=== PATIENT | female | born 1945 | race Caucasian/White ===

== ENCOUNTER → 2016-08-20 | Day surgery (SDC) | payer OTHER ==
[2016-08-14 14:27] VITALS: Ht 162.6 cm; Wt 81.4 kg
[~2016-08-20] VITALS: Ht 162.6 cm; Wt 81.4 kg
[~2016-08-20] MED LIST: 500ML BSS 0.3ML EPI 1:1000PF IRRIG ONE; ACETAMINOPHEN 325 MG TAB PO PRN; AMVISC PLUS 0.8ML SYRINGE INT OCU ONE; ASPEC81 PO; ASPI81TA28 PO; ATROPINE SULFATE 0.1 MG/ML 5ML SYR IV PRN; BRIMONIDINE TART 0.2% OP SOLN PER DROP CHARGE ONE; BSS FLUSH ONE; CALC600T9 PO; CMD5 PO; ENDOCOAT 0.85ML SYRINGE INT OCU ONE; ENOX80IN SQ; EpHEDrine SULFATE INJ 50 MG/ML AMP IV PRN; EpINEphrine INJ 1MG/ML AMP 1 MG/ML AMP ONE; GLC500 PO; KETO0.5S33 OPR; LACTATED RINGER'S 1000ML 500 ML IV SCH; LIDOCAINE 4% OP SOLN DROP CHARGE ONE; LIDOCAINE 4% OP SOLN DROP CHARGE OPL SCH; LIDOCAINE HCL 1% MPF 2 ML VIAL ONE; LPR25 PO; METF500T PO; MIDAZOLAM HCL 1 MG/ML 2ML VIAL ONE; MOXIFLOXACIN OPH SOLN PER DROP CHARGE ONE; MULT-506 PO; MULT60CA PO; POVIDONE-IODINE OP SOLN 30 ML BTL ONE; PRED1SUS3 OPR; PROPARACAINE 0.5% OP SOLN PER DROP CHARGE OPL SCH; SIMV20TA2 PO; TOBRAMYCIN/DEXAMETHASONE OPH OINT PER APPLN CHARGE ONE
[2016-08-20] MEDS: PHENYLEPHRINE HCL 2.5% OP SOLN PER DROP CHARGE OPL SCH ×2 (06:35→06:40)
[2016-08-20] MEDS: TROPICAMIDE 1% OP SOLN PER DROP CHARGE OPL SCH ×2 (06:36→06:41)
[2016-08-20] MEDS: CYCLOPENTOLATE HCL 1% OP SOLN PER DROP CHARGE OPL SCH ×2 (06:37→06:42)
[2016-08-20] MEDS: KETOROLAC 0.5% OP SOLN PER DROP CHARGE OPL SCH ×2 (06:38→06:43)
[2016-08-20] MEDS: MOXIFLOXACIN OPH SOLN PER DROP CHARGE OPL SCH ×2 (06:39→06:49)
--- NOTE | 2016-08-20 06:57 | History & Physical Bridge - [place] ---
H&P Re-Evaluation Bridge Note: I have examined the patient, reviewed the History & Physical and in the interval since the performance of the History & Physical I have noted the following changes of clinical significance: No changes noted
[2016-08-20 07:24] VITALS: TEMP 36.4
--- NOTE | 2016-08-20 07:25 | [facility] Post Operative Brief Note ---
Immediate Operative Summary Operative Date Aug 20, 2016. Pre-Operative Diagnosis Cataract Left Eye Post-Operative Diagnosis Same Procedure(s) Performed Left Cataract Phacoemulsification With Intraocular Lens Implant Surgeon Dr. Carrion Early Childhood Specialist Surgeon(s) None Estimated Blood Loss None Findings cataract left eye Specimens None Complication(s) None Disposition Recovery Room / PACU
--- NOTE | 2016-08-20 07:25 | Discharge Instructions-SurgCtr ---
Discharge Instructions Visit Reason for Visit: Left Cataract Discharge Discharge Diagnosis / Problem: cataract left eye Discharge Goals Goal(s): Improve function Medications Stopped Medications Name(s): metformin stopped saturday Activity Recommendations Activity Limitations: per Instructions/Follow-up section Lifting Limitations: no more than 5 pounds Anesthesia . Post Anesthesia Instructions: If you have had General Anesthesia or IV Sedation: * Do not drive today. * Resume driving when surgeon permits. * Do not make important decisions or sign legal documents today. * Call surgeon for: 1. Temperature elevations greater than 101 degrees F. 2. Uncontrollable pain. 3. Excessive bleeding. 4. Persistent nausea and vomiting. 5. Medication intolerance (nausea, vomiting or rash). * For nausea and vomiting use only clear liquids such as: tea, soda, bouillon until nausea subsides, then gradually increase diet as tolerated. * If you have any concerns or questions, call your surgeon's office. If physician is unavailable and it is an emergency, call 911 or go to the nearest emergency room. . Instructions / Follow-Up Instructions / Follow-Up ACTIVITY RECOMMENDATIONS: * Light activities * You may walk outside, read, watch television. * Mild irritation and blurred vision are common for the first few days, redness around the white part of the eye is common. MEDICATIONS: Resume previous medications unless instructed otherwise by your surgeon. Eye drops (today and tomorrow): Cipro - one drop in operative eye every 2 hours while awake Prednisolone 1% - one drop in operative eye every 2 hours while awake Ketorolac - one drop in operative eye every 2 hours while awake SPECIAL CARE INSTRUCTIONS: * If any problems or concerns, please call Dr. Carrion's office at . * Keep plastic shield taped over eye to sleep at night. * Keep plastic shield taped over eye except to administer eye drops. * Keep plastic shield on until office visit the following day. FOLLOW UP VISIT: Follow-up with Dr. Carrion in the [place] office as scheduled. If not already scheduled, please call the office at . Diet Recommendations Home Diet: no limitations Procedures Procedures Performed: Left Cataract Phacoemulsification With Intraocular Lens Implant Pending Studies Studies pending at discharge: no Medical Emergencies . Who to Call and When: Medical Emergencies: If at any time you feel your situation is an emergency, please call 911 immediately. . Non-Emergent Contact Non-Emergency issues call your: Senior Asset Manager . . "Provider Documentation" section prepared by Arden Carrion.
[2016-08-20 07:51] VITALS: BP 106/65; PULSE 64; O2SAT 95
--- NOTE | 2016-08-20 07:54 | Anesthesia Progress Nt - [facility] ---
Anesthesia Post Op Note Date & Time Aug 20, 2016 at 07:52 Vital Signs Pain Intensity: 0 Vital Signs Past 12 Hours Date Time Temp Pulse Resp B/P Pulse Ox O2 Delivery O2 Flow Rate FiO2 08/20/16 07:51 64 16 106/65 95 Room Air 08/20/16 07:24 36.4 63 16 120/76 95 Room Air 08/20/16 06:29 36.8 70 16 144/77 97 Room Air Notes Mental Status: alert / awake / arousable, participated in evaluation Pt Amnestic to Procedure: Yes Nausea / Vomiting: adequately controlled Pain: adequately controlled Airway Patency, RR, SpO2: stable & adequate BP & HR: stable & adequate Hydration State: stable & adequate Anesthetic Complications: no major complications apparent
--- NOTE | 2016-08-20 08:42 | OPERATIVE REPORT ---
DATE OF OPERATION: 08/20/2016 PREOPERATIVE DIAGNOSIS: Cataract, left eye. POSTOPERATIVE DIAGNOSIS: Cataract, left eye. PROCEDURE: Phacoemulsification cataract extraction with intraocular lens placement, left eye. SURGEON: Dr. Carrion. COMPLICATIONS: None. ESTIMATED BLOOD LOSS: None. ANESTHESIA: Topical with sedation. OPERATION AND FINDINGS: After informed consent was obtained in the holding area the patient was wheeled back to the Operating Room where cardiac monitoring leads and oxygen by nasal cannula was administered by Anesthesia. Gentle IV sedation was given, and the patient's left eye was prepped and draped in usual sterile fashion. A wire lid speculum was placed into the left eye and the operating microscope was swung into position. Using 0.12 forceps and a Supersharp blade a paracentesis port was made 3 o'clock hours away from the 3 o'clock position of patient's left eye. 1% non-preserved Lidocaine was then injected into the anterior chamber for anesthesia. A 2.2 mm keratotome blade was then used to make a shelved clear corneal incision at the 3 o'clock position of the patient's left eye. Amvisc was injected into the anterior chamber and a cystotome and Utrata forceps were used to perform a curvilinear capsulorrhexis. BSS on a hydrodissection cannula was used to hydrodissect the lens nucleus away from the capsular bag. The phacoemulsification handpiece was then used in a stop and chop fashion to remove the lens nucleus. The irrigation and aspiration handpiece was then used to remove the residual cortical material. Amvisc was injected into the capsular bag and anterior chamber and a Bausch \T\ Lomb MX60, 21.0 Diopter intraocular lens was injected into the capsular bag. Irrigation and aspiration handpiece was used to remove the residual viscoelastic material. The wounds were hydrated and noted to be watertight. The wire lid speculum was removed from the eye. Vigamox, Brimonidine, and TobraDex ointment were placed on the eye and it was shielded. It should be noted that EndoCoat was used during the case to protect the cornea endothelium. DISPOSITION: The patient tolerated the procedure well and was wheeled to the post anesthesia care unit in stable condition. I attest to the content of the Intraoperative Record and any orders documented therein. Any exceptions are noted below. I attest to the content of the Intraoperative Record and any orders documented therein. Any exceptio ns are noted below.
== END | disposition home or self-care (01) ==
LOC: X.SURG 06:19
PROVIDERS: ATTEND Ophthalmology
DX: H25.12 Age-related nuclear cataract, left eye (principal); E78.00 Pure hypercholesterolemia, unspecified

== ENCOUNTER 2016-09-06 11:25 | Inpatient (IN) | payer OTHER ==
[~2016-09-06] VITALS: Ht 162.6 cm; Wt 81.3 kg
[2016-09-06] VITALS (8 sets, daily range): BP systolic 96–126; BP diastolic 56–80; PULSE 71–92; TEMP 36.8–37.3; O2SAT 94–96; Ht 162.6 cm; Wt 81.3 kg
[~2016-09-06 11:25] MED LIST changes: -500ML BSS 0.3ML EPI 1:1000PF IRRIG ONE; -ACETAMINOPHEN 325 MG TAB PO PRN; -AMVISC PLUS 0.8ML SYRINGE INT OCU ONE; -ASPI81TA28 PO; -ATROPINE SULFATE 0.1 MG/ML 5ML SYR IV PRN; -BRIMONIDINE TART 0.2% OP SOLN PER DROP CHARGE ONE; -BSS FLUSH ONE; -CMD5 PO; -ENDOCOAT 0.85ML SYRINGE INT OCU ONE; -ENOX80IN SQ; -EpHEDrine SULFATE INJ 50 MG/ML AMP IV PRN; -EpINEphrine INJ 1MG/ML AMP 1 MG/ML AMP ONE; -LACTATED RINGER'S 1000ML 500 ML IV SCH; -LIDOCAINE 4% OP SOLN DROP CHARGE ONE; -LIDOCAINE 4% OP SOLN DROP CHARGE OPL SCH; -LIDOCAINE HCL 1% MPF 2 ML VIAL ONE; -LPR25 PO; -METF500T PO; -MIDAZOLAM HCL 1 MG/ML 2ML VIAL ONE; -MOXIFLOXACIN OPH SOLN PER DROP CHARGE ONE; -POVIDONE-IODINE OP SOLN 30 ML BTL ONE; -PROPARACAINE 0.5% OP SOLN PER DROP CHARGE OPL SCH; -TOBRAMYCIN/DEXAMETHASONE OPH OINT PER APPLN CHARGE ONE
[2016-09-06 11:55] LABS: BASO % 0.4 %; BASO ABS # 0.02 K/uL (0-0.2); COMPLETE YES; HEMATOCRIT 44.3 % (37-47); IG% 0.2 %; LYMPH % 38.4 %; LYMPH ABS # 1.91 K/uL (1.2-3.4); MEAN CELL VOLUME 91.5 fL (80-100); MEAN CORPUSCULAR HEMOGLOBIN 32.6 pg (25-34); MEAN CORPUSCULAR HGB CONC 35.7 g/dl (32-36); MEAN PLATELET VOLUME 9.8 fL (7.4-10.4); MONO % 8.2 %; NEUT % 51.8 %; PLATELET COUNT 214 K/uL (130-400); RED BLOOD COUNT 4.84 M/uL (4.2-5.4); WHITE BLOOD COUNT 4.97 K/uL (4.8-10.8)
[2016-09-06 12:07] LABS: PROTHROMBIN TIME (PATIENT) 10.4 SECONDS (9.0-12.0)
[2016-09-06] MEDS ORDERED: DILTIAZEM BOLUS / DRIP IV STA (12:10)
[2016-09-06] MEDS ORDERED: DILTIAZEM HCL 5 MG/ML 5 ML VIAL IV STA ×2 (12:10)
--- NOTE | 2016-09-06 12:13 | EMERGENCY ROOM VISIT NOTE ---
History Report prepared by Nadir: Nuzhat Barr Under the Supervision of: Dr. Sergo Renee M.D. First contact with patient: 11:34 Chief Complaint: IRREGULAR HEARTBEAT Stated Complaint: A-FIB History of Present Illness The patient is a 71 year old female who presents to the Emergency Room with complaints of a persistent irregular heart rate and rhythm that began yesterday. The patient notes that today she went to see her PCP for a cough, congestion, and chills. She was found to be in atrial fibrillation with RVR in the 150s. The patient states that two days ago she felt a jiggling feeling in her chest, but denies any chest pain, shortness of breath, or lightheadedness. She notes a history of Type 2 diabetes, but denies any cardiac history. The patient states that she saw a roll examiner in 2012 for palpitations, but denies any other issues. She denies taking anything for her recent cough cold and congestion. The patient states that her cold began on Saturday, but states that it has been worsening. She states that on Saturday she noticed the symptoms in her heart. Source of History: patient Onset: yesterday Position: other (global) Quality: other (irregular heart rate and rhythm) Timing: other (persistent) Associated Symptoms: + chills, + cough, No SOB, No chest pain Note: Associated Symptoms: jiggling feeling in chest, cold, congestion Review of Systems See HPI for pertinent positives & negatives. A total of 10 systems reviewed and were otherwise negative. Past Medical & Surgical Medical Problems: (1) Hyperlipidemia (2) Rapid atrial fibrillation (3) Secundum ASD (4) Type 2 diabetes mellitus Surgical Problems: (1) History of cataract surgery (2) S/P section (3) S/p nipple surgery Family History No pertinent family history stated. Social History Smoking Status: Never Smoker Marital Status: Housing Status: lives with significant other Occupation Status: retired Current/Historical Medications Scheduled Aspirin (Aspirin Ec), 81 MG PO HS Calcium Carbonate-Vitamin D (Calcium + D), 1 TAB PO QAM Ketorolac Tromethamine (Ophth) (Acular Oph), 1 DROP OPR QID Metformin Hcl (Glucophage), 500 MG PO BID Multiple Vitamins W/ Minerals (Preservision Areds 2), 1 TAB PO BID Multivitamin (Multivitamin), 1 TAB PO QAM Prednisolone Acetate (Ophth) (Pred Forte 1% Oph), 1 DROPS OPR DAILY Simvastatin (Zocor), 20 MG PO QPM Allergies Coded Allergies: Amoxicillin (Verified Allergy, Severe, THROAT SWELLS AND TONGUE FEELS ON FIRE, 09/06/16) Cephalosporins (Verified Allergy, Severe, THROAT SWELLS AND TONGUE FEELS ON FIRE, 09/06/16) Hydrocodone (Verified Allergy, Unknown, RASH, 09/06/16) Physical Exam Vital Signs Date Time Temp Pulse Resp B/P Pulse Ox O2 Delivery O2 Flow Rate FiO2 09/06/16 11:59 156 09/06/16 11:43 Room Air 09/06/16 11:41 146 21 151/91 95 Room Air 09/06/16 11:39 Room Air 09/06/16 11:29 36.6 76 20 127/67 97 Room Air Physical Exam GENERAL: Patient is a healthy-appearing well-nourished HEAD: Normocephalic atraumatic EYES: Ocular movements intact pupils equal and react to light OROPHARYNX mucous membranes are moist no exudates present no erythema or edema present NECK: Supple no nuchal rigidity CHEST: Good equal expansion LUNGS: Clear and equal to auscultation CARDIAC: Normal S1 and S2 ABDOMEN: Soft nontender no guarding BACK: No CVA tenderness EXTREMITIES: No pain upon palpation normal muscle strength in all groups no clubbing cyanosis or edema NEURO: Patient is following commands is answering questions appropriately. Alert and oriented x3 Cranial Nerves 2-12 grossly intact Medical Decision & Procedures ER Provider Diagnostic Interpretation: X-ray results as stated below per interpretation by me and the radiologist: SINGLE VIEW CHEST CLINICAL HISTORY: Atypical chest pain. FINDINGS: An AP, portable, upright chest radiograph is compared to study dated 01/15/2011. The examination is degraded by portable technique and patient rotation. The cardiomediastinal silhouette is unremarkable. There is mild atherosclerotic calcification of the thoracic aorta. Chronic residual thickening is similar to previous. The lungs and pleural spaces are clear. No pneumothorax is seen. The skeletal structures are osteopenic. The bony thorax is grossly intact. IMPRESSION: No active disease in the chest. Electronically signed by: Arthur Palafox M.D. 09/06/2016 12:18 PM Dictated Date/Time: 09/06/2016 12:18 PMSINGLE VIEW CHEST CLINICAL HISTORY: Atypical chest pain. FINDINGS: An AP, portable, upright chest radiograph is compared to study dated 01/15/2011. The examination is degraded by portable technique and patient rotation. The cardiomediastinal silhouette is unremarkable. There is mild atherosclerotic calcification of the thoracic aorta. Chronic residual thickening is similar to previous. The lungs and pleural spaces are clear. No pneumothorax is seen. The skeletal structures are osteopenic. The bony thorax is grossly intact. IMPRESSION: No active disease in the chest. Electronically signed by: Arthur Palafox M.D. 09/06/2016 12:18 PM Dictated Date/Time: 09/06/2016 12:18 PM Laboratory Results 09/06/16 11:40 Red Blood Count 4.84, Mean Corpuscular Volume 91.5, Mean Corpuscular Hemoglobin 32.6, Mean Corpuscular Hemoglobin Concent 35.7, Mean Platelet Volume 9.8, Neutrophils (%) (Auto) 51.8, Lymphocytes (%) (Auto) 38.4, Monocytes (%) (Auto) 8.2, Eosinophils (%) (Auto) 1.0, Basophils (%) (Auto) 0.4, Neutrophils # (Auto) 2.57, Lymphocytes # (Auto) 1.91, Monocytes # (Auto) 0.41, Eosinophils # (Auto) 0.05, Basophils # (Auto) 0.02 09/06/16 11:40 Test 09/06/16 11:40 White Blood Count 4.97 K/uL (4.8-10.8) Red Blood Count 4.84 M/uL (4.2-5.4) Hemoglobin 15.8 g/dL (12.0-16.0) Hematocrit 44.3 % (37-47) Mean Corpuscular Volume 91.5 fL (80-100) Mean Corpuscular Hemoglobin 32.6 pg (25-34) Mean Corpuscular Hemoglobin Concent 35.7 g/dl (32-36) Platelet Count 214 K/uL (130-400) Mean Platelet Volume 9.8 fL (7.4-10.4) Neutrophils (%) (Auto) 51.8 % Lymphocytes (%) (Auto) 38.4 % Monocytes (%) (Auto) 8.2 % Eosinophils (%) (Auto) 1.0 % Basophils (%) (Auto) 0.4 % Neutrophils # (Auto) 2.57 K/uL (1.4-6.5) Lymphocytes # (Auto) 1.91 K/uL (1.2-3.4) Monocytes # (Auto) 0.41 K/uL (0.11-0.59) Eosinophils # (Auto) 0.05 K/uL (0-0.5) Basophils # (Auto) 0.02 K/uL (0-0.2) RDW Standard Deviation 40.3 fL (36.4-46.3) RDW Coefficient of Variation 11.9 % (11.5-14.5) Immature Granulocyte % (Auto) 0.2 % Immature Granulocyte # (Auto) 0.01 K/uL (0.00-0.02) Prothrombin Time 10.4 SECONDS (9.0-12.0) Prothromb Time International Ratio 1.0 (0.9-1.1) Activated Partial Thromboplast Time 27.3 SECONDS (21.0-31.0) Partial Thromboplastin Ratio 1.1 Anion Gap 12.0 mmol/L (3-11) Est Creatinine Clear Calc Drug Dose 43.0 ml/min Estimated GFR () 51.9 Estimated GFR (Non- 44.8 BUN/Creatinine Ratio 17.8 (10-20) Calcium Level 9.4 mg/dl (8.5-10.1) Total Bilirubin 0.4 mg/dl (0.2-1) Direct Bilirubin 0.1 mg/dl (0-0.2) Aspartate Amino Transf (AST/SGOT) 20 U/L (15-37) Alanine Aminotransferase (ALT/SGPT) 19 U/L (12-78) Alkaline Phosphatase 87 U/L (45-117) Total Creatine Kinase 115 U/L (26-192) Creatine Kinase MB 1.2 ng/ml (0.5-3.6) Creatine Kinase MB Ratio 1.0 (0-3.0) Troponin I < 0.015 ng/ml (0-0.045) Total Protein 7.7 gm/dl (6.4-8.2) Albumin 3.7 gm/dl (3.4-5.0) Lipase 228 U/L (73-393) Labs reviewed by ED physician. Medications Administered Medications (Trade) Dose Ordered Sig/Denise Route Start Time Stop Time Status Last Admin Dose Admin Diltiazem HCl (Cardizem Inj) 20 mg NOW STAT IV 09/06/16 12:10 09/06/16 12:12 DC 09/06/16 12:41 20 MG Diltiazem HCl 1 ea 1 ea NOW STAT IV 09/06/16 12:10 09/06/16 12:12 DC 09/06/16 12:42 1 EA Diltiazem HCl/ Dextrose (Cardizem Inj/D5 100ml) 125 ml @ 0 mls/hr Q0M PRN IV 09/06/16 12:30 09/06/16 15:11 DC 09/06/16 12:42 5 MLS/HR ECG Indication: other (abnormal heart rate and rhythm) Rate (beats per minute): 142 Rhythm: atrial flutter Findings: PVC, no acute ischemic change ED Course 1135: Past medical records reviewed. The patient was evaluated in room C5. A complete history and physical examination was performed by the Nurse Practitioner Student. 1205: Past medical records reviewed. The patient was evaluated in room C5. A complete history and physical examination was performed. I discussed the treatment plan with her and her and they verbalized complete understanding and agreement. She will be evlauated for further treatment. 1210: Ordered Diltiazem HCl 1 ea IV, Diltiazem HCl 20 mg IV, Diltiazem HCl 125 mg/Dextrose 125 ml @ 0 mls/hr Protocol IV. 1235: I discussed the patients case with Mei Horowitz. She is going to evaluate the patient for further treatment. Medical Decision Differential diagnosis: Etiologies such as cardiac ischemia, aortic dissection, pulmonary embolism, pneumonia, pneumothorax, musculoskeletal, infections, pericarditis, myocarditis , esophageal rupture, gastrointestinal, as well as others were entertained. This is a 71-year-old female who presents emergency department complaining of palpitations. The patient believes that she started having palpitations on Saturday which would be over 48 hours at this point. She went to her primary care physician's office and was sent to the emergency department. Arrival to the emergency department her heart rate is 140. For this reason she was given Cardizem boluses along with a drip. I did discuss the case with the hospitalist service who agreed to admit the patient. Patient family were in agreement with the treatment plan. Consults Time Called: 1231 Consulting Physician: Mei Horowitz Returned Call: [phone] I discussed the patients case with Mei Horowitz. She is going to evaluate the patient for further treatment. Impression Primary Impression: New onset atrial fibrillation Critical Care I have personally spent greater than 30 minutes of critical care time in the direct management of this patient. This includes bedside care, interpretation of diagnostic studies, and testing, discussion with consultants, patient, and family members, and other required patient management activities. This 30 minutes is in excess of all separately billable procedures. Scribe Attestation The scribe's documentation has been prepared under my direction and personally reviewed by me in its entirety. I confirm that the note above accurately reflects all work, treatment, procedures, and medical decision making performed by me. Departure Information Dispostion Being Evaluated By Hospitalist Referrals Rylee Spencer M.D. (PCP)
[2016-09-06 12:17] LABS: ALT/SGPT 19 U/L (12-78); BLOOD UREA NITROGEN 21 mg/dl (7-18); BUN/CREATININE RATIO 17.8 (10-20); CALCIUM 9.4 mg/dl (8.5-10.1); CARBON DIOXIDE 26 mmol/L (21-32); CHLORIDE 100 mmol/L (98-107); GLUCOSE 210 mg/dl (70-99); POTASSIUM 3.8 mmol/L (3.5-5.1); SODIUM 138 mmol/L (136-145)
--- NOTE | 2016-09-06 12:20 | DIAGNOSTIC IMAGING REPORT ---
SINGLE VIEW CHEST CLINICAL HISTORY: Atypical chest pain. FINDINGS: An AP, portable, upright chest radiograph is compared to study dated 01/15/2011. The examination is degraded by portable technique and patient rotation. The cardiomediastinal silhouette is unremarkable. There is mild atherosclerotic calcification of the thoracic aorta. Chronic residual thickening is similar to previous. The lungs and pleural spaces are clear. No pneumothorax is seen. The skeletal structures are osteopenic. The bony thorax is grossly intact. IMPRESSION: No active disease in the chest. Electronically signed by: Arthur Palafox M.D. 09/06/2016 12:18 PM Dictated Date/Time: 09/06/2016 12:18 PM
[2016-09-06 12:22] LABS: ALKALINE PHOSPHATASE 87 U/L (45-117); AST/SGOT 20 U/L (15-37)
[2016-09-06] MEDS ORDERED: DILTIAZEM HCL INJ 125 MG in DEXTROSE 5% 100ML IV PRN (12:30)
[2016-09-06] MEDS ORDERED: HEPARIN SOD 5000 UNIT/0.5 ML CARP IV STA (12:50)
[2016-09-06] MEDS: HEPARIN 25,000 UNIT/500ML D5W 500 ML IV PRN ×2 (13:12→23:03)
[2016-09-06] MEDS ORDERED: NITROGLYCERIN 0.4 MG SL PER TAB CHARGE SL PRN (13:15)
[2016-09-06] MEDS ORDERED: POLYETHYLENE (MIRALAX) 17 GM PACK PO PRN (13:15)
[2016-09-06] MEDS ORDERED: ACETAMINOPHEN 325 MG TAB PO PRN (13:15)
[2016-09-06] MEDS ORDERED: ALUMINUM/MAGNESIUM/SIMETH (MAALOX MAX) 30 ML UDC PO PRN (13:15)
[2016-09-06] MEDS ORDERED: GLUCOSE 10 TABS/TUBE PO PRN (13:15)
[2016-09-06] MEDS ORDERED: GLUCOSE 40% GEL 15 GM TUBE PO PRN (13:15)
[2016-09-06] MEDS ORDERED: ONDANSETRON INJ 2 MG/ML 2 ML VIAL IV PRN (13:15)
[2016-09-06] MEDS ORDERED: MAGNESIUM HYDROXIDE SUSP 30 ML UDC PO PRN (13:15)
[2016-09-06] MEDS ORDERED: ZOLPIDEM TARTRATE 5 MG TAB PO PRN (13:15)
[2016-09-06] MEDS ORDERED: DEXTROSE 50% 50 ML SYR IV PRN (13:15)
[2016-09-06] MEDS ORDERED: GLUCAGON FOR INJ 1 MG VIAL SQ PRN (13:15)
[2016-09-06] MEDS ORDERED: METF500T PO (13:23)
[2016-09-06] MEDS ORDERED: ASPI81TA28 PO (13:23)
--- NOTE | 2016-09-06 13:24 | Progress Note ---
Progress Note ATTENDING NOTE : pt seen and examined , care co ordinated with Susan Duncan PA-C Images , labs , EKG's reviewed 71 YO F with past medical hx of Type 2 Dm , Hyperlipidemia was sent from Family physician office as pt was found to be in rapid afib / flutter as per pt she has been having upper URI symptoms since last Saturday -had runny nose , nasal congestion , dry non productive cough noticed fluttering of chest on Saturday no other symptoms of SOB , chest heaviness, dizzy spell or palpitation mentions she was doing her daily activities did laundry without any symptoms of WELLS no weakness or tiredness /fatigue at baseline pt is very active works in [employer] -had not did that for a while after recent cataract surgery went to see Dr Spencer today for URI symptom found to be in rapid afib RVR HR in 150's sent to ED at ED EKG shows flutter wave , pt started on IV Cardizem gtt evaluated at bedside . offers no complain of SOB , chest pain or dizzy spell P/E : gen : no apparent distress HEENT; sclera non icteric , PERRLA/EOMI HT: irregular, no murmur . no lower ext edema, no JVD , no carotid bruit Lungs; CTA abdomen; soft , non tender ext : no rash or deformity Neuro : no focal deficit A/P : Aflutter /Afib : new diagnosis had prior hx of palpitation , had Holter in -shows frequent PVC's no treatment was indicated pt presents with possible > 72 hrs of hx of Palpitation -aflutter /afib will start with IV Heparin anticoagulation D/w Cardiology -pt will be started on PO Lopressor 25 mg PO BID monitor in Tele serial cardiac markers , ECHO cardiology eval had brief discussion with pt regarding possible need for group home anticoagulation will defer to cardiology decide Warfarin vs newer agents URI : has non productive cough Cxray -normal no indication for Abx mild dehydration with BUN 21 /Anion gap of 12 IV fluid repeat PRP in AM Type 2 DM hold metformin insulin SSI hb 1c in AM hyperlipidemia : cont statin S/P Cataract surgery : cont out pt eye drops FULL CODE
[2016-09-06] MEDS ORDERED: METOPROLOL TARTRATE 1 MG/ML VIAL IV PRN (13:30)
--- NOTE | 2016-09-06 13:46 | History and Physical ---
History & Physical Date & Time of Service: Sep 06, 2016 at 13:13 Chief Complaint: A-FIB Primary Care Physician: Rylee Spencer M.D. History of Present Illness Source: patient, clinic records This is a 71 year old female with PMH of DM type 2, hyperlipidemia, and other problems listed below who was sent to the ED from Dr. Spencer's office for AF with RVR. Patient reports URI symptoms starting 4 days ago with nasal congestion , cough productive of small amount of yellow sputum, which have been improving. She states 2 days ago she developed "heart jiggling" sensation which has been intermittent. In Dr. Spencer's office today she was found to be in atrial fibrillation with rate up to 160, so was sent to ER, where EKG showed atrial flutter with RVR rate up to 150s. She was started on Cardizem drip with improvement of HR to 90s. She is feeling asymptomatic currently. She states she had similar sensation in 2012 in setting of her sister passing away and was evaluated by Dr. Benjamin at that time. She denies fever, chills, fatigue, dizziness, GONG, sore throat, chest pain/ pressure, SOB, WELLS, N/V, bowel or bladder changes, myalgias, calf pain, edema, history of abnormal bleeding. Denies history of CAD, CHF, valvular disease, arrhythmia, TIA, CVA. Denies sick contact. Denies taking any OTC cold medications. Prior echo 04/2013 showed EF 61% , grade 1 diastolic dysfunction, no significant valvular disease, secundum ASD. Past Medical/Surgical History Medical Problems: (1) Hyperlipidemia Status: Chronic (2) Secundum ASD Permanent Comment: noted on 04/2013 echo Status: Chronic (3) Type 2 diabetes mellitus Status: Chronic Surgical Problems: (1) History of cataract surgery Status: Chronic (2) S/P section Status: Chronic (3) S/p nipple surgery Status: Chronic Family History Cardiac disorder MOTHER (rheumatic heart disease) SISTER (Takotsubo cardiomyopathy) Social History Smoking Status: Never Smoker Alcohol Use: none Drug Use: none Marital Status: Housing status: lives with significant other Occupational Status: retired Multi-Drug Resistant Organisms History of MDRO: No Allergies Coded Allergies: Amoxicillin (Verified Allergy, Severe, THROAT SWELLS AND TONGUE FEELS ON FIRE, 09/06/16) Cephalosporins (Verified Allergy, Severe, THROAT SWELLS AND TONGUE FEELS ON FIRE, 09/06/16) Hydrocodone (Verified Allergy, Unknown, RASH, 09/06/16) Home Medications Scheduled Aspirin (Aspirin Ec), 81 MG PO HS Calcium Carbonate-Vitamin D (Calcium + D), 1 TAB PO QAM Ketorolac Tromethamine (Ophth) (Acular Oph), 1 DROP OPR QID Metformin Hcl (Glucophage), 500 MG PO BID Multiple Vitamins W/ Minerals (Preservision Areds 2), 1 TAB PO BID Multivitamin (Multivitamin), 1 TAB PO QAM Prednisolone Acetate (Ophth) (Pred Forte 1% Oph), 1 DROPS OPR DAILY Simvastatin (Zocor), 20 MG PO QPM Review of Systems Ten point review of systems performed with pertinent positives and negatives noted in HPI. Physical Exam Vital Signs Date Time Temp Pulse Resp B/P Pulse Ox O2 Delivery O2 Flow Rate FiO2 09/06/16 12:43 123 18 131/78 95 Room Air 09/06/16 11:59 156 09/06/16 11:43 Room Air 09/06/16 11:41 146 21 151/91 95 Room Air 09/06/16 11:39 Room Air 09/06/16 11:29 36.6 76 20 127/67 97 Room Air General Appearance: WD/WN, no apparent distress, + pertinent finding (alert pleasant 71 year old female, no distress, at bedside) Head: normocephalic, atraumatic Eyes: normal inspection, PERRL, EOMI ENT: normal ENT inspection, hearing grossly normal, pharynx normal Neck: supple, no JVD, no carotid bruits, trachea midline Respiratory/Chest: lungs clear, normal breath sounds, no respiratory distress, no accessory muscle use Cardiovascular: no murmur, + irregularly irregular (rate 90s) Abdomen/GI: normal bowel sounds, non tender, soft Extremities/Musculoskelatal: normal inspection, no calf tenderness, no pedal edema Neurologic/Psych: alert, normal mood/affect, oriented x 3, + pertinent finding (grossly nonfocal) Skin: normal color, warm/dry Diagnostics Laboratory Results Results Past 24 Hours Test 09/06/16 11:40 Range/Units White Blood Count 4.97 4.8-10.8 K/uL Red Blood Count 4.84 4.2-5.4 M/uL Hemoglobin 15.8 12.0-16.0 g/dL Hematocrit 44.3 37-47 % Mean Corpuscular Volume 91.5 80-100 fL Mean Corpuscular Hemoglobin 32.6 25-34 pg Mean Corpuscular Hemoglobin Concent 35.7 32-36 g/dl Platelet Count 214 130-400 K/uL Mean Platelet Volume 9.8 7.4-10.4 fL Neutrophils (%) (Auto) 51.8 % Lymphocytes (%) (Auto) 38.4 % Monocytes (%) (Auto) 8.2 % Eosinophils (%) (Auto) 1.0 % Basophils (%) (Auto) 0.4 % Neutrophils # (Auto) 2.57 1.4-6.5 K/uL Lymphocytes # (Auto) 1.91 1.2-3.4 K/uL Monocytes # (Auto) 0.41 0.11-0.59 K/uL Eosinophils # (Auto) 0.05 0-0.5 K/uL Basophils # (Auto) 0.02 0-0.2 K/uL RDW Standard Deviation 40.3 36.4-46.3 fL RDW Coefficient of Variation 11.9 11.5-14.5 % Immature Granulocyte % (Auto) 0.2 % Immature Granulocyte # (Auto) 0.01 0.00-0.02 K/uL Prothrombin Time 10.4 9.0-12.0 SECONDS Prothromb Time International Ratio 1.0 0.9-1.1 Sodium Level 138 136-145 mmol/L Potassium Level 3.8 3.5-5.1 mmol/L Chloride Level 100 98-107 mmol/L Carbon Dioxide Level 26 21-32 mmol/L Anion Gap 12.0 3-11 mmol/L Blood Urea Nitrogen 21 7-18 mg/dl Creatinine 1.20 0.60-1.20 mg/dl Est Creatinine Clear Calc Drug Dose 43.0 ml/min Estimated GFR () 51.9 Estimated GFR (Non- 44.8 BUN/Creatinine Ratio 17.8 10-20 Random Glucose 210 70-99 mg/dl Calcium Level 9.4 8.5-10.1 mg/dl Total Bilirubin 0.4 0.2-1 mg/dl Direct Bilirubin 0.1 0-0.2 mg/dl Aspartate Amino Transf (AST/SGOT) 20 15-37 U/L Alanine Aminotransferase (ALT/SGPT) 19 12-78 U/L Alkaline Phosphatase 87 45-117 U/L Total Creatine Kinase 115 26-192 U/L Creatine Kinase MB 1.2 0.5-3.6 ng/ml Creatine Kinase MB Ratio 1.0 0-3.0 Troponin I < 0.015 0-0.045 ng/ml Total Protein 7.7 6.4-8.2 gm/dl Albumin 3.7 3.4-5.0 gm/dl Lipase 228 73-393 U/L Diagnostic Radiology SINGLE VIEW CHEST CLINICAL HISTORY: Atypical chest pain. FINDINGS: An AP, portable, upright chest radiograph is compared to study dated 01/15/2011. The examination is degraded by portable technique and patient rotation. The cardiomediastinal silhouette is unremarkable. There is mild atherosclerotic calcification of the thoracic aorta. Chronic residual thickening is similar to previous. The lungs and pleural spaces are clear. No pneumothorax is seen. The skeletal structures are osteopenic. The bony thorax is grossly intact. IMPRESSION: No active disease in the chest. EKG atrial flutter with RVR rate 142 Impression Assessment and Plan ATRIAL FIBRILLATION/ FLUTTER with RVR Admit to telemetry New onset possibly > 72 hours Currently asymptomatic Rate up to 160s in clinic and 150s in ER Started on IV Cardizem in ER Rate now controlled in 90s Initial troponin negative; electrolytes WNL BUN slightly elevated; possible mild dehydration- will give gentle IVF's CXR- no infiltrate or failure Will start PO Lopressor 25 mg BID and PRN IV Lopressor [id number] score is 3 for age, female gender, and DM Start IV heparin Check echo Trend serial cardiac enzymes Consult cardiology; attending discussed case with Dr. 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 Very frequent ventricular ectopy occuring as single beats, couplets and bigeminy. No sustained arrhythmias or significant pauses. A single symptom of palpitations reported which correlated with PVC's." Prior TTE 2013- "Normal LV chamber size and wall thickness. Normal LV systolic function without regional wall motion abnormality. Calculated LV ejection Fraction = 61% (bi-plane method of discs). Grade I diastolic dysfunction. No significant valvular pathology. No sign of pericardial effusion or significant pericardial thickening. There is a secundum atrial septal defect. There is small left to right interatrial shunt." DM TYPE 2 Hold metformin Insulin sliding scale coverage Check A1c in am HYPERLIPIDEMIA Check lipid panel Continue statin URI Improving Likely viral No infiltrate on CXR Supportive care Gentle IVF's ordered S/P CATARACT SURGERY Continue eye drops CODE STATUS Full code per my discussion with the patient DVT PROPHYLAXIS IV Heparin DISPOSITION Admit to telemetry Patient seen in collaboration with Dr. Arana. Please see her addendum. Patient will be followed by Dr. Ruiz tomorrow. ATTENDING NOTE : pt seen and examined , care co ordinated with Susan Duncan PA-C Images , labs , EKG's reviewed 71 YO F with past medical hx of Type 2 Dm , Hyperlipidemia was sent from Family physician office as pt was found to be in rapid afib / flutter as per pt she has been having upper URI symptoms since last Saturday -had runny nose , nasal congestion , dry non productive cough noticed fluttering of chest on Saturday no other symptoms of SOB , chest heaviness, dizzy spell or palpitation mentions she was doing her daily activities did laundry without any symptoms of WELLS no weakness or tiredness /fatigue at baseline pt is very active works in [employer] -had not did that for a while after recent cataract surgery went to see Dr Spencer today for URI symptom found to be in rapid afib RVR HR in 150's sent to ED at ED EKG shows flutter wave , pt started on IV Cardizem gtt evaluated at bedside . offers no complain of SOB , chest pain or dizzy spell P/E : gen : no apparent distress HEENT; sclera non icteric , PERRLA/EOMI HT: irregular, no murmur . 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 Y/N: Yes Risk Level: Moderate
[2016-09-06 13:58] LABS: PARTIAL THROMBOPLASTIN RATIO 1.1
[2016-09-06] MEDS ORDERED: SODIUM CHLORIDE 0.9% 1000ML 1,000 ML IV SCH (14:00)
[2016-09-06] MEDS ORDERED: METOPROLOL TARTRATE 50 MG TAB PO STA (14:14)
[2016-09-06] MEDS ORDERED: NURSING VERBAL MED ORDER ONE ×2 (15:00→16:15)
[2016-09-06] MEDS ORDERED: METOPROLOL TARTRATE 25 MG TAB PO ONE ×2 (15:15→16:30)
--- NOTE | 2016-09-06 15:49 | CARDIOLOGY CONSULTATION ---
DATE OF CONSULTATION: 09/06/2016 REFERRING PHYSICIAN: Dr. Roseann Arana. REASON FOR CONSULTATION: Atrial flutter. HISTORY OF PRESENT ILLNESS: Ms. Aviles is a 71-year-old female with history of diabetes, secundum ASD, palpitations and hyperlipidemia. She presented to the Emergency Department per the direction of her primary care physician. She had presented to her PCP's office with URI symptoms, cough, sinus congestion, and rhinorrhea. She was found to be tachycardic. ECG demonstrated atrial flutter with a rate of approximately 140 beats per minute. She was referred to the ED where Cardizem infusion was initiated. Her heart rate was improved to the 90s. Denies any symptoms associated with her atrial flutter. No palpitations, lightheadedness, dizziness, syncope, near syncope, or chest discomfort. The patient was unaware of her arrhythmia. She carries a history of prior palpitations related to PVCs. No recent change in functional capacity. History of structural heart disease with secundum ASD diagnosed in 2012. This has been managed conservatively. Recently, the patient converted to sinus rhythm. She is awaiting dose of beta-eileen therapy. Her Cardizem infusion has been discontinued. Her is present at the bedside. She is currently asymptomatic aside from her URI symptoms. REVIEW OF SYSTEMS: The pertinent positive noted above, a comprehensive 10-system review is otherwise negative. PAST MEDICAL HISTORY: 1. Hyperlipidemia. 2. Secundum ASD. 3. Diabetes type 2. PAST SURGICAL HISTORY: 1. Cataract surgery. 2. . FAMILY HISTORY: Mother with rheumatic heart disease. Sister with Takotsubo cardiomyopathy, no premature CAD or sudden cardiac . SOCIAL HISTORY: Lifelong nonsmoker. She is , lives with her . ALLERGIES: AMOXICILLIN, CEPHALOSPORINS, HYDROCODONE. HOME MEDICATIONS: 1. Aspirin 81 mg daily. 2. Metformin 500 mg twice daily. 3. Multivitamin daily. 4. Simvastatin 20 mg daily. EKG on admission is atrial flutter with rapid ventricular response, isolated PVC. LABORATORY DATA: Initial troponin undetectable. Sodium 138, potassium 3.8, chloride 100, CO2 26, BUN of 21, creatinine is 1.20, glucose 158. White blood cell count 4.97, hemoglobin is 15.8, platelet count is 214. INR is 1.0. Chest x-ray on admission, no active disease. Telemetry demonstrates atrial flutter with conversion to sinus rhythm. PHYSICAL EXAMINATION: VITAL SIGNS: Temperature is 36.9 degrees centigrade, pulse 92 beats per minute and regular, respiratory rate 20 breaths per minute, blood pressure 109/80, and SaO2 96% on 2 liters. GENERAL: NAD, awake, alert and oriented x3. HEENT: Mucous membranes are moist. Positive rhinorrhea. No scleral icterus. NECK: Supple without JVD or HJR. No carotid bruit. HEART: Regular with a normal S1 and S2. No murmur, rub or gallop. LUNGS: Clear without rales, rhonchi or wheeze. ABDOMEN: Soft, nontender. No rebound or guarding. Normal bowel sounds. EXTREMITIES: Warm and dry. There is no clubbing, cyanosis, or edema. NEUROLOGIC: Demonstrates no focal deficit. FINAL IMPRESSION: 1. Paroxysmal atrial flutter with rapid ventricular response. The patient spontaneously converted to sinus rhythm. 2. History of secundum ASD. 3. Diabetes type 2. 4. Dyslipidemia. 5. History of palpitations secondary to sensed ventricular ectopy. 6. Viral upper respiratory tract infection. PLAN AND RECOMMENDATIONS: Recommend to continue metoprolol 25 mg twice daily. Resting 2D transthoracic echo and repeat TSH pending at this time. Due to the patient's stroke risk, recommend anticoagulation with Coumadin. She is currently receiving intravenous heparin infusion. I will give her 5 mg of Coumadin this evening. Duration of atrial flutter unknown. Other medications will be continued as previously ordered. I will continue to follow along with you during hospitalization.
[2016-09-06] MEDS: WARFARIN SOD 5 MG TAB PO SCH (16:15)
[2016-09-06] MEDS: KETOROLAC 0.5% OP SOLN 3 ML BTL OPR SCH ×2 (17:00→20:22)
[2016-09-06] MEDS: INSULIN HUMAN REGULAR SC SCH ×2 (17:22→20:21)
[2016-09-06 19:51] LABS: PARTIAL THROMBOPLASTIN RATIO 2.6
[2016-09-06 19:55] LABS: CKMB/CK RATIO 1.6 (0-3.0)
[2016-09-06] MEDS: CEROVITE ADV FORMULA TAB PO SCH (20:18)
[2016-09-06] MEDS ORDERED: METOPROLOL TARTRATE 25 MG TAB PO SCH (21:00)
[2016-09-06] MEDS ORDERED: SIMVASTATIN 20 MG TAB PO SCH (21:00)
[2016-09-06] MEDS ORDERED: ASPIRIN 81 MG ECTAB PO SCH (21:00)
[2016-09-07 03:27] VITALS: BP 124/48; PULSE 84; TEMP 37; O2SAT 92
[2016-09-07 03:41] LABS: MEAN CELL VOLUME 90.5 fL (80-100); MEAN CORPUSCULAR HEMOGLOBIN 31.8 pg (25-34); MEAN CORPUSCULAR HGB CONC 35.1 g/dl (32-36); MEAN PLATELET VOLUME 9.4 fL (7.4-10.4); PLATELET COUNT 181 K/uL (130-400); RED BLOOD COUNT 4.09 M/uL (4.2-5.4); WHITE BLOOD COUNT 6.74 K/uL (4.8-10.8)
[2016-09-07 03:59] LABS: BLOOD UREA NITROGEN 15 mg/dl (7-18); BUN/CREATININE RATIO 16.6 (10-20); CALCIUM 8.6 mg/dl (8.5-10.1); CARBON DIOXIDE 26 mmol/L (21-32); CHLORIDE 105 mmol/L (98-107); CREATININE 0.93 mg/dl (0.60-1.20); GLUCOSE 177 mg/dl (70-99); MAGNESIUM 1.9 mg/dl (1.8-2.4); PARTIAL THROMBOPLASTIN RATIO 2.7; POTASSIUM 4.1 mmol/L (3.5-5.1); PROTHROMBIN TIME (PATIENT) 11.2 SECONDS (9.0-12.0); SODIUM 140 mmol/L (136-145)
[2016-09-07 04:00] VITALS: O2SAT 92
[2016-09-07 04:09] LABS: CHOLESTEROL 130 mg/dl (0-200); CHOLESTEROL/HDL RATIO 2.1; CKMB/CK RATIO 1.2 (0-3.0); HDL CHOLESTEROL 62 mg/dl; LDL CHOLESTEROL CALCULATED 45 mg/dl; TRIGLYCERIDES 113 mg/dl (0-150); VERY LOW DENSITY LIPOPROT CALC 23 mg/dl
[2016-09-07 07:11] LABS: ESTIMATED AVERAGE GLUCOSE 166 mg/dl; HA1C FLAG Normal (Normal)
[2016-09-07 07:48] VITALS: BP 124/56; PULSE 86; TEMP 36.9; O2SAT 95
[2016-09-07] MEDS: CEROVITE ADV FORMULA TAB PO SCH (08:24)
[2016-09-07] MEDS: KETOROLAC 0.5% OP SOLN 3 ML BTL OPR SCH ×3 (08:25→17:31)
[2016-09-07] MEDS: INSULIN HUMAN REGULAR SC SCH ×2 (08:28→12:17)
[2016-09-07] MEDS ORDERED: CALCIUM 600MG + VIT D 400 IU TAB PO SCH (09:00)
[2016-09-07] MEDS ORDERED: PrednisoLONE ACET 1% OP SUSP 5 ML BTL OPR SCH (09:00)
[2016-09-07] MEDS ORDERED: MULTIVITAMIN TAB PO SCH (09:00)
--- NOTE | 2016-09-07 10:42 | Cardiology Follow-Up ---
Subjective General Date of Service: Sep 07, 2016. Pt evaluation today including: conversation w/ patient, physical exam, chart review, lab review, review of studies, conversation w/ wallpaper consultant, review of inpatient medication list History of Present Illness The patient is a 71 year old female seen in follow-up. Remains in sinus rhythm overnight. Resting comfortably upon my arrival to the room. Easily awakens to verbal stimuli. Denies chest discomfort or unusual shortness of breath. Cough improving as well. No orthopnea, PND, lower extremity edema, or palpitations. Offers no complaints at this time. Allergies Coded Allergies: Amoxicillin (Verified Allergy, Severe, THROAT SWELLS AND TONGUE FEELS ON FIRE, 09/06/16) Cephalosporins (Verified Allergy, Severe, THROAT SWELLS AND TONGUE FEELS ON FIRE, 09/06/16) Hydrocodone (Verified Allergy, Unknown, RASH, 09/06/16) Social History Smoking Status: Never Smoker Hx Tobacco Use In Past Year?: No Hx Alcohol Use - Type And Amou: No Hx Substance Use - Type And Am: No Problem List Medical Problems: (1) New onset atrial fibrillation Status: Acute Review of Systems Respiratory: + cough, + dyspnea on exertion, No dyspnea at rest, No hemoptysis , No shortness of breath, No sputum, No wheezing Cardiac: No PND, No chest pain, No claudication, No edema, No orthopnea, No palpitations Physical Exam Vital Signs Last Vital Signs Documentation Date Time Temp Pulse Resp B/P Pulse Ox O2 Delivery O2 Flow Rate FiO2 09/07/16 07:48 36.9 86 16 124/56 95 Room Air 09/06/16 14:47 2.0 Physical Exam Constitutional: General Apperance: heathly-appearing Level of Distress: NAD Ambulation: ambulating normally Head: normocephalic ENMT: normal ENT inspection, hearing grossly normal Neck: supple, trachea midline Lungs: Auscultation: no wheezing, no rales/crackles, no rhonchi Cardiovascular: Heart Auscultation: RRR, normal S1, normal S2, no murmurs, no rubs, no gallops Peripheral Pulses: Bruits: none appreciated Radial Pulse: normal on the left, normal on the right Abdomen: Inspection & Palpation: soft, non-distended, no tenderness, guarding & rebound Extremities: no cyanosis, no edema, no clubbing, no ulcers Neurologic: Gait & Station: pertinent finding (no focal motor deficit) Cranial Nerves: grossly intact Assessment and Plan Assessment and Plan FINAL IMPRESSION: 1. Paroxysmal atrial flutter with rapid ventricular response. - spontaneously converted to sinus rhythm. 2. Secundum ASD. 3. Diabetes type 2. 4. Dyslipidemia. 5. History of palpitations secondary to sensed ventricular ectopy. 6. Viral upper respiratory tract infection. PLAN AND RECOMMENDATIONS: Continue metoprolol 25 mg twice daily. Recommend Lovenox bridging to oral anticoagulation with Coumadin. Coumadin will then be managed via the [facility] anticoagulation clinic. Other medications will be continued as previously ordered. I will arrange for outpatient follow-up with Dr. Benjamin in 2-4 weeks. Laboratory Results Last 24 Hours Test 09/06/16 11:40 09/06/16 15:06 09/06/16 19:22 09/06/16 19:59 White Blood Count 4.97 K/uL Red Blood Count 4.84 M/uL Hemoglobin 15.8 g/dL Hematocrit 44.3 % Mean Corpuscular Volume 91.5 fL Mean Corpuscular Hemoglobin 32.6 pg Mean Corpuscular Hemoglobin Concent 35.7 g/dl Platelet Count 214 K/uL Mean Platelet Volume 9.8 fL Neutrophils (%) (Auto) 51.8 % Lymphocytes (%) (Auto) 38.4 % Monocytes (%) (Auto) 8.2 % Eosinophils (%) (Auto) 1.0 % Basophils (%) (Auto) 0.4 % Neutrophils # (Auto) 2.57 K/uL Lymphocytes # (Auto) 1.91 K/uL Monocytes # (Auto) 0.41 K/uL Eosinophils # (Auto) 0.05 K/uL Basophils # (Auto) 0.02 K/uL RDW Standard Deviation 40.3 fL RDW Coefficient of Variation 11.9 % Immature Granulocyte % (Auto) 0.2 % Immature Granulocyte # (Auto) 0.01 K/uL Prothrombin Time 10.4 SECONDS Prothromb Time International Ratio 1.0 Activated Partial Thromboplast Time 27.3 SECONDS 67.6 SECONDS Partial Thromboplastin Ratio 1.1 2.6 Sodium Level 138 mmol/L Potassium Level 3.8 mmol/L Chloride Level 100 mmol/L Carbon Dioxide Level 26 mmol/L Anion Gap 12.0 mmol/L Blood Urea Nitrogen 21 mg/dl Creatinine 1.20 mg/dl Est Creatinine Clear Calc Drug Dose 43.0 ml/min Estimated GFR () 51.9 Estimated GFR (Non- 44.8 BUN/Creatinine Ratio 17.8 Random Glucose 210 mg/dl Calcium Level 9.4 mg/dl Total Bilirubin 0.4 mg/dl Direct Bilirubin 0.1 mg/dl Aspartate Amino Transf (AST/SGOT) 20 U/L Alanine Aminotransferase (ALT/SGPT) 19 U/L Alkaline Phosphatase 87 U/L Total Creatine Kinase 115 U/L 74 U/L Creatine Kinase MB 1.2 ng/ml 1.2 ng/ml Creatine Kinase MB Ratio 1.0 1.6 Troponin I < 0.015 ng/ml < 0.015 ng/ml Total Protein 7.7 gm/dl Albumin 3.7 gm/dl Lipase 228 U/L Bedside Glucose 158 mg/dl 219 mg/dl Test 09/07/16 03:33 09/07/16 06:27 White Blood Count 6.74 K/uL Red Blood Count 4.09 M/uL Hemoglobin 13.0 g/dL Hematocrit 37.0 % Mean Corpuscular Volume 90.5 fL Mean Corpuscular Hemoglobin 31.8 pg Mean Corpuscular Hemoglobin Concent 35.1 g/dl RDW Standard Deviation 38.9 fL RDW Coefficient of Variation 11.8 % Platelet Count 181 K/uL Mean Platelet Volume 9.4 fL Prothrombin Time 11.2 SECONDS Prothromb Time International Ratio 1.0 Activated Partial Thromboplast Time 69.3 SECONDS Partial Thromboplastin Ratio 2.7 Sodium Level 140 mmol/L Potassium Level 4.1 mmol/L Chloride Level 105 mmol/L Carbon Dioxide Level 26 mmol/L Anion Gap 9.0 mmol/L Blood Urea Nitrogen 15 mg/dl Creatinine 0.93 mg/dl Est Creatinine Clear Calc Drug Dose 55.2 ml/min Estimated GFR () 70.7 Estimated GFR (Non- 61.0 BUN/Creatinine Ratio 16.6 Random Glucose 177 mg/dl Estimated Average Glucose 166 mg/dl Hemoglobin A1c 7.4 % Calcium Level 8.6 mg/dl Magnesium Level 1.9 mg/dl Total Creatine Kinase 60 U/L Creatine Kinase MB 0.7 ng/ml Creatine Kinase MB Ratio 1.2 Troponin I < 0.015 ng/ml Triglycerides Level 113 mg/dl Cholesterol Level 130 mg/dl HDL Cholesterol 62 mg/dl LDL Cholesterol, Calculated 45 mg/dl VLDL Cholesterol, Calculated 23 mg/dl Cholesterol/HDL Ratio 2.1 Thyroid Stimulating Hormone (TSH) 2.800 uIu/ml Bedside Glucose 232 mg/dl
[2016-09-07 11:57] VITALS: BP 119/58; PULSE 69; TEMP 36.8; O2SAT 95
--- NOTE | 2016-09-07 12:01 | ECHOCARDIOGRAM REPORT ---
*NOTICE TO RECEIVING REPUBLICAN AGENCY This information is strictly Confidential and protected under [place] law. [place] law prohibits you from making any further disclosure of this information unless further disclosure is expressly permitted by the written consent of the person to whom it pertains or is authorized by law. A general authorization for the release of medical or other information is not sufficient for this purpose. Hospital accepts no responsibility if the information is made available to any other person, INCLUDING THE PATIENT. Interpretation Summary * Name: AMOS MINA Study Date: 09/07/2016 07:01 AM BP: 124/48 mmHg * Patient Location: [facility] [place] HR: 84 * : 1945 (M/d/yyyy) Gender: Female Height: 64 in * Age: 71 yrs Ethnicity: CA Weight: 178 lb * Ordering Physician: Roseann Arana * Referring Physician: Rylee Spencer * Performed By: Luisa Millard RCS * * Reason For Study: A-Flutter * BSA: 1.9 m2 * The study was technically adequate. * There is no comparison study available. * -- Conclusions -- * Left ventricular systolic function is normal. * Ejection Fraction = 60-65%. * The left ventricular wall motion is normal. * The right ventricle is normal size. * Doppler interrogation suggests interatrial shunt. * Aortic valve sclerosis mild, without significant aortic valvular stenosis. Procedure Details * A complete two-dimensional transthoracic echocardiogram was performed (2D, M-mode, Doppler and color flow Doppler). Left Ventricle * The left ventricle is normal in size. * There is no thrombus. * There is normal left ventricular wall thickness. * Ejection Fraction = 60-65%. * Left ventricular systolic function is normal. * The left ventricular wall motion is normal. Right Ventricle * The right ventricle is normal size. * The right ventricular systolic function is normal as assessed by tricuspid annular plane systolic excursion (TAPSE) (normal >1.5 cm). Atria * The left atrial size is normal. * Right atrial size is normal. * Doppler interrogation suggests interatrial shunt. Mitral Valve * The mitral valve is normal. * There is no mitral valve stenosis. * Significant mitral regurgitation is absent. Tricuspid Valve * The tricuspid valve is normal. * There is no tricuspid stenosis. * There is trace tricuspid regurgitation. * Doppler findings do not suggest pulmonary hypertension. Aortic Valve * The aortic valve is trileaflet. * Aortic valve sclerosis mild, without significant aortic valvular stenosis. * Aortic stenosis is absent. * There is no significant aortic regurgitation. Pulmonic Valve * The pulmonary valve is not well seen, but the Doppler examination is normal without significant regurgitation or stenosis. Great Vessels * The aortic root and proximal ascending aorta are normal sized. Pericardium/Pleural * There is no pericardial effusion. Great Vessels * Normal inferior vena cava diameter and respiratory variation suggests normal central venous pressure. Left Ventricular Diastolic Function * Pulse wave TDI of the anterior and posterior mitral annulas demonstrates normal LV relaxation MMode 2D Measurements and Calculations IVSd 1.0 cm IVSs 1.3 cm LVIDd 4.1 cm LVIDs 2.8 cm LVPWd 1.0 cm LVPWs 1.3 cm IVS/LVPW 0.96 FS 31.7 % EDV(Teich) 76.3 ml ESV(Teich) 30.4 ml EF(Teich) 60.1 % EDV(cubed) 71.4 ml ESV(cubed) 22.8 ml EF(cubed) 68.1 % % IVS thick 29.4 % % LVPW thick 20.5 % LV mass(C)d 139.6 grams LV mass(C)dI 75.0 grams/m\S\2 LV mass(C)s 112.4 grams LV mass(C)sI 60.4 grams/m\S\2 CO(Teich) 3.5 l/min CI(Teich) 1.9 l/min/m\S\2 SV(Teich) 45.9 ml SI(Teich) 24.6 ml/m\S\2 CO(cubed) 3.7 l/min CI(cubed) 2.0 l/min/m\S\2 SV(cubed) 48.6 ml SI(cubed) 26.1 ml/m\S\2 Ao root diam 3.0 cm Ao root area 7.0 cm\S\2 ACS 1.7 cm LA dimension 3.1 cm LA/Ao 1.1 LVAd ap4 32.8 cm\S\2 LVLd ap4 9.0 cm EDV(MOD-sp4) 99.0 ml LVAs ap4 17.8 cm\S\2 LVLs ap4 7.3 cm ESV(MOD-sp4) 38.0 ml EF(MOD-sp4) 61.6 % LVAd ap2 33.6 cm\S\2 LVLd ap2 9.5 cm EDV(MOD-sp2) 99.0 ml LVAs ap2 15.8 cm\S\2 LVLs ap2 7.1 cm ESV(MOD-sp2) 31.0 ml EF(MOD-sp2) 68.7 % CO(MOD-sp4) 4.7 l/min CI(MOD-sp4) 2.5 l/min/m\S\2 SV(MOD-sp4) 61.0 ml SI(MOD-sp4) 32.8 ml/m\S\2 CO(MOD-sp2) 5.2 l/min CI(MOD-sp2) 2.8 l/min/m\S\2 SV(MOD-sp2) 68.0 ml SI(MOD-sp2) 36.5 ml/m\S\2 Doppler Measurements and Calculations MV E max chip 104.3 cm/sec MV A max chip 81.4 cm/sec MV E/A 1.3 MV P1/2t max chip 106.4 cm/sec MV P1/2t 92.6 msec MVA(P1/2t) 2.4 cm\S\2 MV dec slope 336.4 cm/sec\S\2 MV dec time 0.24 sec Ao V2 max 151.4 cm/sec Ao max PG 9.2 mmHg Ao max PG (full) 5.1 mmHg LV V1 max PG 4.1 mmHg LV V1 max 101.2 cm/sec PA V2 max 105.6 cm/sec PA max PG 4.5 mmHg TR max chip 239.1 cm/sec
[2016-09-07] MEDS: HEPARIN 25,000 UNIT/500ML D5W 500 ML IV PRN (12:43)
[2016-09-07] MEDS ORDERED: CMD5 PO (13:10)
[2016-09-07] MEDS ORDERED: LPR25 PO (13:10)
[2016-09-07] MEDS ORDERED: ENOX80IN SQ ×3 (13:14→15:21)
--- NOTE | 2016-09-07 13:18 | Discharge Instructions ---
Discharge Instructions Admission Reason for Admission: Rapid Atrial Fibrillation Discharge Discharge Diagnosis / Problem: Atrial flutter in setting of structural heart disease Discharge Goals Goal(s): Prevent Disease Progression Activity Recommendations Activity Limitations: resume your previous activity . Instructions / Follow-Up Instructions / Follow-Up Please take all medications as instructed. You have been started on WARFARIN, which is a blood thinner. You will need regular follow-up with the Anticoagulation clinic. You have an appointment with them on Saturday for your first INR check. They will continue to adjust your dose of warfarin to achieve a goal INR 2-3. You will need to continue with Lovenox injections until your INR is 2 or greater on two consecutive checks. The Anticoagulation Clinic is located at [facility] on the second floor , . Your appointment is on Sat, 09/10 @10:30am. You will need to follow-up with Cardiology in one week for follow-up from this hospitalization. You have been scheduled with Dr. Mayo for 08/14 @ 10:50am for follow-up of this hospitalization. Please bring all paperwork with you from discharge. It was a pleasure taking care of you! Call if you have any questions or problems. You can reach a [facility] hospitalist on duty at [facility] 24 hours a day by calling [phone]. Take care of yourself. Shani Ruiz DO [facility] Hospitalist Current Hospital Diet Patient's current hospital diet: AHA Diet (Heart Healthy), Diabetes Type 2 Diet Discharge Diet Recommended Diet: AHA Diet (Heart Healthy), Diabetes Type 2 Diet Procedures Procedures Performed: TTE Pending Studies Studies pending at discharge: no Laboratory Results Hemoglobin A1c Test 09/07/16 03:33 Range/Units Estimated Average Glucose 166 mg/dl Hemoglobin A1c 7.4 H 4.5-5.6 % Lipid Panel Test 09/07/16 03:33 Range/Units Triglycerides Level 113 0-150 mg/dl Cholesterol Level 130 0-200 mg/dl HDL Cholesterol 62 mg/dl Cholesterol/HDL Ratio 2.1 LDL Cholesterol, Calculated 45 mg/dl Medical Emergencies . Who to Call and When: Medical Emergencies: If at any time you feel your situation is an emergency, please call 911 immediately. . Non-Emergent Contact Non-Emergency issues call your: Primary Care Provider, Gynaecological Oncologist . . "Provider Documentation" section prepared by Shani Ruiz. VTE Core Measure Inpt VTE Proph given/why not?: Other Anticoagulation (heparin drip)
[2016-09-07 15:35] VITALS: BP 121/55; PULSE 66; TEMP 36.8; O2SAT 96
[2016-09-07 17:16] VITALS: BP 121/55; PULSE 66; TEMP 36.8; O2SAT 96
[2016-09-07] MEDS ORDERED: LOVENOX TEACHING KIT SCH (17:30)
[2016-09-07] MEDS: WARFARIN SOD 5 MG TAB PO SCH (17:31)
--- NOTE | 2016-09-13 21:52 | Discharge Summary ---
Discharge Summary Admission Date: Sep 06, 2016 at 12:41 Discharge Date: Sep 07, 2016 Discharge Disposition: Home Principal Diagnosis: Paroxysmal atrial flutter with rapid ventricular response H/O secondum ASD DMII h/o palpitations secondary to sensed ventricular ectopy viral URI Procedures: TTE 09/07 Vaccinations: None. Consultations: Cardiology Medication Reconciliation New Medications: Enoxaparin (Lovenox) 80 Mg/0.8 Ml Inj 80 MG SQ Q12 for 7 Days, #14 SYR 1 Refill Continue with twice daily injections until INR therapeutic, as instructed by Anticoagulation Clinic. Metoprolol Tartrate (Lopressor) 25 Mg Tab 25 MG PO BID for 30 Days, #60 TAB Warfarin Sod (Coumadin) 5 Mg Tab 5 MG PO DAILY@16 for 30 Days, #30 TAB Take one daily until otherwise instructed by the Anticoagulation clinic. Continued Medications: Aspirin (Aspirin Ec) 81 Mg Tab 81 MG PO HS Calcium Carbonate-Vitamin D (Calcium + D) 1 Tab Tab 1 TAB PO QAM Ketorolac Tromethamine (Ophth) (Acular Oph) 0.5 % Angela 1 DROP OPR QID, BTL Metformin Hcl (Glucophage) 500 Mg Tab 500 MG PO BID, TAB Multiple Vitamins W/ Minerals (Preservision Areds 2) 1 Cap Cap 1 TAB PO BID Multivitamin (Multivitamin) Tab 1 TAB PO QAM Prednisolone Acetate (Ophth) (Pred Forte 1% Oph) 1 % Suri 1 DROPS OPR DAILY, #10 ML Simvastatin (Zocor) 20 Mg Tab 20 MG PO QPM Admission Information HPI (per Admitting provider): This is a 71 year old female with PMH of DM type 2, hyperlipidemia, and other problems listed below who was sent to the ED from Dr. Spencer's office for AF with RVR. Patient reports URI symptoms starting 4 days ago with nasal congestion , cough productive of small amount of yellow sputum, which have been improving. She states 2 days ago she developed "heart jiggling" sensation which has been intermittent. In Dr. Spencer's office today she was found to be in atrial fibrillation with rate up to 160, so was sent to ER, where EKG showed atrial flutter with RVR rate up to 150s. She was started on Cardizem drip with improvement of HR to 90s. She is feeling asymptomatic currently. She states she had similar sensation in 2012 in setting of her sister passing away and was evaluated by Dr. Benjamin at that time. She denies fever, chills, fatigue, dizziness, GONG, sore throat, chest pain/ pressure, SOB, WELLS, N/V, bowel or bladder changes, myalgias, calf pain, edema, history of abnormal bleeding. Denies history of CAD, CHF, valvular disease, arrhythmia, TIA, CVA. Denies sick contact. Denies taking any OTC cold medications. Prior echo 04/2013 showed EF 61% , grade 1 diastolic dysfunction, no significant valvular disease, secundum ASD. Physical Exam (per Admitting): General Appearance: WD/WN, no apparent distress, + pertinent finding (alert pleasant 71 year old female, no distress, at bedside) Head: normocephalic, atraumatic Eyes: normal inspection, PERRL, EOMI ENT: normal ENT inspection, hearing grossly normal, pharynx normal Neck: supple, no JVD, no carotid bruits, trachea midline Respiratory/Chest: lungs clear, normal breath sounds, no respiratory distress, no accessory muscle use Cardiovascular: no murmur, + irregularly irregular (rate 90s) Abdomen/GI: normal bowel sounds, non tender, soft Extremities/Musculoskelatal: normal inspection, no calf tenderness, no pedal edema Neurologic/Psych: alert, normal mood/affect, oriented x 3, + pertinent finding (grossly nonfocal) Skin: normal color, warm/dry Hospital Course This is a 71 yo female with h/o diabetes, secundum ASD, palpitations and hyperlipidemia who presented to the ER per PCP recommendations after being tachycardic in the office. EKG demonstrated atrial flutter with a rate of approximately 140 bpm. Cardizem infusion was given in the ER where her rate improved into the 90s, and she subsequently converted to sinus rhythm. She denied any symptoms associated with atrial flutter including no palpitations, lightheadedness, dizziness, syncope or chest discomfort. She was admitted to telemetry. Metoprolol 25mg twice daily was continued and a TTE and TSH were ordered. TSH was 2.8. The echocardiogram revealed normal LV function with an EF 60-65%, normal RV, and aortic valve sclerosis that is mild without significant ar=ortic valve stenosis. Doppler interrogation suggests an interatrial shunt. She was started on warfarin with a bridge with Lovenox because of the structural heart disease. Follow-up was set for Anticoagulation Clinic to establish care as well as close follow-up with PCP post-discharge. On day of discharge, she was afebrile and hemodynamically stable. She was tolerating PO and was ambulating at baseline. She was discharged in stable condition. Total time spent on discharge = 60 minutes This includes examination of the patient, discharge planning, medication reconciliation, and communication with other providers. Discharge Instructions Discharge Instructions Admission Reason for Admission: Rapid Atrial Fibrillation Discharge Discharge Diagnosis / Problem: Atrial flutter in setting of structural heart disease Discharge Goals Goal(s): Prevent Disease Progression Activity Recommendations Activity Limitations: resume your previous activity . Instructions / Follow-Up Instructions / Follow-Up Please take all medications as instructed. You have been started on WARFARIN, which is a blood thinner. You will need regular follow-up with the Anticoagulation clinic. You have an appointment with them on Saturday for your first INR check. They will continue to adjust your dose of warfarin to achieve a goal INR 2-3. You will need to continue with Lovenox injections until your INR is 2 or greater on two consecutive checks. The Anticoagulation Clinic is located at [facility] on the second floor , . Your appointment is on Sat, 09/10 @10:30am. You will need to follow-up with Cardiology in one week for follow-up from this hospitalization. You have been scheduled with Dr. Mayo for Saturday, 09/14 @ 10:50am for follow-up of this hospitalization. Please bring all paperwork with you from discharge. It was a pleasure taking care of you! Call if you have any questions or problems. You can reach a [facility] hospitalist on duty at [facility] 24 hours a day by calling [phone]. Take care of yourself. Shani Ruiz, DO [facility] Hospitalist Additional Copies To Dano Mayo M.D.
== END 2016-09-07 18:15 | disposition home or self-care (01) | DRG 309 ==
LOC: ENRESERVTM → ENRESERVDT → C.EDB 11:27 → C.2E 12:41
PROVIDERS: ADMIT Hospitalist; ATTEND Hospitalist
DX: I48.92 Unspecified atrial flutter (principal); Q21.1 Atrial septal defect; I48.91 Unspecified atrial fibrillation; E78.5 Hyperlipidemia, unspecified; E11.9 Type 2 diabetes mellitus without complications; J06.9 Acute upper respiratory infection, unspecified; B97.89 Other viral agents as the cause of diseases classified elsewhere; E86.0 Dehydration; I49.3 Ventricular premature depolarization; Z98.49 Cataract extraction status, unspecified eye; Z79.82 Long term (current) use of aspirin; Z79.899 Other long term (current) drug therapy; Z79.84 Long term (current) use of oral hypoglycemic drugs

== ENCOUNTER 2017-09-09 19:27 | Inpatient (IN) | payer OTHER ==
[~2017-09-09] VITALS: Ht 162.6 cm; Wt 79.8 kg
[~2017-09-09 19:27] MED LIST changes: -ASPEC81 PO; +ASPI81TA28 PO; +CMD5 PO; +ENOX80IN SQ; -GLC500 PO; +LPR25 PO; +METF500T PO
[2017-09-09] MEDS ORDERED: ACETAMINOPHEN 500 MG TAB PO ONE (20:38)
[2017-09-09] MEDS ORDERED: ACETAMINOPHEN 500 MG TAB PO STA (20:41)
[2017-09-09 21:17] LABS: INFLUENZA B ANTIGEN Neg for Influ B (NEG)
[2017-09-09 21:28] LABS: BASO % 0.4 %; BASO ABS # 0.02 K/uL (0-0.2); HEMATOCRIT 36.8 % (37-47); HEMOGLOBIN 12.8 g/dL (12.0-16.0); IG# 0.01 K/uL (0.00-0.02); LYMPH ABS # 0.81 K/uL (1.2-3.4); MEAN CELL VOLUME 90.6 fL (80-100); MEAN CORPUSCULAR HEMOGLOBIN 31.5 pg (25-34); MEAN CORPUSCULAR HGB CONC 34.8 g/dl (32-36); MEAN PLATELET VOLUME 9.6 fL (7.4-10.4); MONO % 8.9 %; MONO ABS # 0.45 K/uL (0.11-0.59); NEUT % 74.5 %; NEUT ABS # 3.76 K/uL (1.4-6.5); PLATELET COUNT 212 K/uL (130-400); RED CELL DISTRIBUTION WIDTH SD 39.6 fL (36.4-46.3); WHITE BLOOD COUNT 5.05 K/uL (4.8-10.8)
[2017-09-09 21:45] LABS: ALBUMIN 3.1 gm/dl (3.4-5.0); CALCIUM 9.1 mg/dl (8.5-10.1); CREATININE 0.92 mg/dl (0.60-1.20); POTASSIUM 4.6 mmol/L (3.5-5.1)
[2017-09-09 21:48] LABS: TOTAL PROTEIN 7.4 gm/dl (6.4-8.2)
--- NOTE | 2017-09-09 22:11 | DIAGNOSTIC IMAGING REPORT ---
CHEST ONE VIEW PORTABLE CLINICAL HISTORY: fever COMPARISON STUDY: 09/06/2016 FINDINGS: The heart is mildly enlarged. There are left mid and lower lung zone airspace opacities suspicious for pneumonia. Imaging subsequent to treatment is recommended in follow-up.[ IMPRESSION: Left mid and lower lung zone airspace opacities suspicious for pneumonia. Films subsequent to treatment are recommended in follow-up. Electronically signed by: Vaughn Correa M.D. 09/09/2017 10:09 PM Dictated Date/Time: 09/09/2017 10:09 PM
[2017-09-09] MEDS ORDERED: LEVAQUIN 750MG / 150ML D5W IV STA (22:23)
[2017-09-09] MEDS ORDERED: GLUCOSE 40% GEL 15 GM TUBE PO PRN (23:15)
[2017-09-09] MEDS ORDERED: ONDANSETRON INJ 2 MG/ML 2 ML VIAL IV PRN (23:15)
[2017-09-09] MEDS ORDERED: GLUCAGON FOR INJ 1 MG VIAL SQ PRN (23:15)
[2017-09-09] MEDS ORDERED: GLUCOSE 10 TABS/TUBE PO PRN (23:15)
[2017-09-09] MEDS ORDERED: DEXTROSE 50% 50 ML SYR IV PRN (23:15)
[2017-09-10] VITALS (7 sets, daily range): BP systolic 106–132; BP diastolic 61–73; PULSE 71–102; TEMP 36.6–37.9; O2SAT 93–95; Ht 162.6 cm; Wt 79.8 kg
--- NOTE | 2017-09-10 00:07 | HISTORY & PHYSICAL EXAMINATION ---
DATE OF ADMISSION: 09/09/2017 PRIMARY CARE PHYSICIAN: Dr. Fabian Jernigan. CHIEF COMPLAINT: Flu-like symptoms for the last 1 week with confusion during this evening. HISTORY OF PRESENT COMPLAINT: She is a 72-year-old female with significant past medical history including paroxysmal atrial fibrillation, on Coumadin, type 2 diabetes, hyperlipidemia, atrial septal defect, apparently has been complaining of flu-like symptoms with fever, chills, sore throat, body aches for the last 1 week. She has had sweats last night and her symptoms got worse as of this evening. Her found her to be very confused this evening and brought her to the Emergency Room. No chest pain, no palpitation, did not have any shortness of breath, did have nausea but no vomiting, no abdominal pain, no problem with urine and/or bowel habit, no numbness or tingling in the extremities, no headache or blurred vision. In the ER, she was febrile at 39.4, tachycardic, with normal white count, but chest x-ray did show left mid and lower lobe infiltration. From that point, she received IV antibiotic and was advised admission. PAST MEDICAL HISTORY: Significant for paroxysmal atrial fibrillation, on Coumadin, type 2 diabetes, hyperlipidemia and atrial septal defect. PAST SURGICAL HISTORY: Significant for cataract surgery and hysteroscopy but no hysterectomy. FAMILY HISTORY: Significant in that father at the age of 79 from skin cancer and complications and had diabetes. Sister has diabetes. Mother did have heart disorder. SOCIAL HISTORY: She is . She lives with her . She does not smoke but drinks occasionally. She has been reasonably ambulant. ALLERGIES: SHE IS ALLERGIC TO AMPICILLIN, CEPHALOSPORINS AND HYDROCODONE. MEDICATIONS: As an outpatient, she has been taking metformin 500 mg b.i.d., aspirin 81 mg daily, vitamin D with calcium 1 tablet in the morning, ophthalmic solution with ketorolac 0.5% one drop OPR q.i.d., Lopressor 25 mg b.i.d., multivitamin 1 tablet daily, prednisolone acetate 1% suspension 1 drop OPR daily, simvastatin 20 mg daily and warfarin sodium 5 mg as directed daily. REVIEW OF SYSTEMS: Other system review unremarkable except those mentioned in history of present complaint. PHYSICAL EXAMINATION: GENERAL: On examination in the Emergency Room, she was not having any acute distress. VITAL SIGNS: Temperature 39.4, pulse was 104 initially, then went down to 89, blood pressure 124/59, saturation 92% on room air. HEENT: Unremarkable. NECK: Supple. No JVD, no bruit. CHEST: Decreased breath sounds on the left side with crackles in mid and lower lung. HEART: S1, S2, regular. ABDOMEN: Soft, benign, nontender. No organomegaly. Bowel sounds present. EXTREMITIES: Negative for any edema. MUSCULOSKELETAL: No acute arthritis. CENTRAL NERVOUS SYSTEM: She is alert, awake, oriented x3. No focal sensory and/or motor deficit appreciated. Her confusion resolved in the Emergency Room. LABORATORY DATA: Noted today white count was 5.05, H&H 12.8/36.8, platelet was 212. Sodium 131, potassium 4.6, chloride 97, carbon dioxide 25, BUN 14, creatinine 0.92, random glucose 263. Lactic acid 1.42. LFTs normal. PT and INR pending. UA examination pending. Influenza A and B negative. Chest x-ray reported as left mid and lower lung zone air space opacities suspicious for pneumonia. EKG was in sinus rhythm, rate of 80 per minute, normal axis, no significant ST-T wave changes. IMPRESSION AND PLAN: 1. Left mid and lower lung pneumonia status post flu-like symptoms. The patient will be admitted to medical floor. She received Levaquin in the Emergency Room, we will continue with that. Blood culture and urine culture have been taken. 2. Diabetes type 2, on metformin. We will hold metformin while in the hospital and we will give sliding scale coverage for blood sugar control. 3. Paroxysmal atrial fibrillation, on anticoagulation. Her EKG seems to be in sinus rhythm. Continue with Coumadin and we will check INR tomorrow morning. 4. Gastrointestinal prophylaxis with Maalox and Mylanta. 5. Deep vein thrombosis prophylaxis, has been on Coumadin. 6. Code status. She will be full code. In my clinical judgment, the beneficiary meets criteria as per CMS for 2-midnight stay in the hospital. MARCK
--- NOTE | 2017-09-10 00:37 | EMERGENCY ROOM VISIT NOTE ---
History Report prepared by Nadir: Caio Dillard Under the Supervision of: Dr. Roberto Barajas M.D. First contact with patient: 21:19 Chief Complaint: FEVER Stated Complaint: WEAK, INCOHERENT Nursing Triage Summary: spouse reports pt had echo completed today around 0630 pt reports pain in L groin denies radiation or NV . speech clear and appropriate. denies GONG or vision changes pt reports fever and chills intermittently X 1week History of Present Illness The patient is a 72 year old female who presents to the Emergency Room with complaints of a persistent fever that began 1 week prior to arrival. The patient states that her fever was as high at 104.0 degrees last week. She notes that she has been having night sweats and has been shivering as well. She has had a cough recently, but it is non-productive. She denies any further headaches , chest pain, abdominal pain, or diarrhea. The patient's notes that when he arrived home today the patient was feverish and acting confused. She was not putting whole sentences together. The patient's also mentioned that the patient was complaining about pain in her groin. The patient notes that his has resolved spontaneously. 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 A total of 10 systems reviewed and were otherwise negative. Past Medical & Surgical Medical Problems: (1) Confusion state (2) Hyperlipidemia (3) Pneumonia (4) Rapid atrial fibrillation (5) Secundum ASD (6) Type 2 diabetes mellitus Surgical Problems: (1) History of cataract surgery (2) S/P section (3) S/p nipple surgery Family History Cardiac disorder MOTHER (rheumatic heart disease) SISTER (Takotsubo cardiomyopathy) Social History Smoking Status: Never Smoker Drug Use: none Marital Status: Housing Status: lives with significant other Occupation Status: retired Current/Historical Medications Scheduled Aspirin (Aspirin Ec), 81 MG PO HS Calcium Carbonate-Vitamin D (Calcium + D), 1 TAB PO QAM Enoxaparin (Lovenox), 80 MG SQ Q12 Ketorolac Tromethamine (Ophth) (Acular Oph), 1 DROP OPR QID Metformin Hcl (Glucophage), 500 MG PO BID Metoprolol Tartrate (Lopressor), 25 MG PO BID Multiple Vitamins W/ Minerals (Preservision Areds 2), 1 TAB PO BID Multivitamin (Multivitamin), 1 TAB PO QAM Prednisolone Acetate (Ophth) (Pred Forte 1% Oph), 1 DROPS OPR DAILY Simvastatin (Zocor), 20 MG PO QPM Warfarin Sod (Coumadin), 5 MG PO DAILY@16 Allergies Coded Allergies: Amoxicillin (Verified Allergy, Severe, THROAT SWELLS AND TONGUE FEELS ON FIRE, 09/06/16) Cephalosporins (Verified Allergy, Severe, THROAT SWELLS AND TONGUE FEELS ON FIRE, 09/06/16) Hydrocodone (Verified Allergy, Unknown, RASH, 09/06/16) Physical Exam Vital Signs Date Time Temp Pulse Resp B/P (MAP) Pulse Ox O2 Delivery O2 Flow Rate FiO2 09/09/17 22:05 37.8 89 16 124/59 92 Room Air 09/09/17 21:05 94 09/09/17 20:47 94 Room Air 09/09/17 20:37 39.5 95 26 139/72 95 Room Air 09/09/17 20:00 39.4 104 20 162/70 96 Room Air Physical Exam Constitutional: Vital signs reviewed. Eyes: Pupils are equal round reactive to light. Conjunctiva are noninjected. ENT: Pharynx is clear without erythema or exudate. Mucous membranes are moist. Neck supple without meningeal signs. Respiratory: Clear to auscultation bilaterally. Breath sounds are equal bilaterally. Cardiovascular: Regular rate and rhythm. No rubs or gallops. GI: Soft, nondistended and nontender. Bowel sounds are present. Musculoskeletal: No peripheral edema. No lower extremity tenderness. The groin shows no signs of infection or hernia. There is no CVA tenderness. Integumentary: No cyanosis. Patient's skin is very warm to the touch. Neurological: The patient is awake and alert. No focal deficits. Psychiatric: Normal affect. Medical Decision & Procedures ER Provider Diagnostic Interpretation: Radiology results as stated below per my review and the radiologist's interpretation: CHEST ONE VIEW PORTABLE CLINICAL HISTORY: fever COMPARISON STUDY: 09/06/2016 FINDINGS: The heart is mildly enlarged. There are left mid and lower lung zone airspace opacities suspicious for pneumonia. Imaging subsequent to treatment is recommended in follow-up.[ IMPRESSION: Left mid and lower lung zone airspace opacities suspicious for pneumonia. Films subsequent to treatment are recommended in follow-up. Electronically signed by: Vaughn Correa M.D. 09/09/2017 10:09 PM Dictated Date/Time: 09/09/2017 10:09 PM Laboratory Results 09/09/17 21:03 Red Blood Count 4.06, Mean Corpuscular Volume 90.6, Mean Corpuscular Hemoglobin 31.5, Mean Corpuscular Hemoglobin Concent 34.8, Mean Platelet Volume 9.6, Neutrophils (%) (Auto) 74.5, Lymphocytes (%) (Auto) 16.0, Monocytes (%) (Auto) 8.9, Eosinophils (%) (Auto) 0.0, Basophils (%) (Auto) 0.4, Neutrophils # (Auto) 3.76, Lymphocytes # (Auto) 0.81, Monocytes # (Auto) 0.45, Eosinophils # (Auto) 0.00, Basophils # (Auto) 0.02 09/09/17 21:03 Test 09/09/17 20:47 09/09/17 21:03 09/09/17 21:20 09/09/17 22:10 Influenza Type A Antigen Neg for Influ A (NEG) Influenza Type B Antigen Neg for Influ B (NEG) White Blood Count 5.05 K/uL (4.8-10.8) Red Blood Count 4.06 M/uL (4.2-5.4) Hemoglobin 12.8 g/dL (12.0-16.0) Hematocrit 36.8 % (37-47) Mean Corpuscular Volume 90.6 fL (80-100) Mean Corpuscular Hemoglobin 31.5 pg (25-34) Mean Corpuscular Hemoglobin Concent 34.8 g/dl (32-36) Platelet Count 212 K/uL (130-400) Mean Platelet Volume 9.6 fL (7.4-10.4) Neutrophils (%) (Auto) 74.5 % Lymphocytes (%) (Auto) 16.0 % Monocytes (%) (Auto) 8.9 % Eosinophils (%) (Auto) 0.0 % Basophils (%) (Auto) 0.4 % Neutrophils # (Auto) 3.76 K/uL (1.4-6.5) Lymphocytes # (Auto) 0.81 K/uL (1.2-3.4) Monocytes # (Auto) 0.45 K/uL (0.11-0.59) Eosinophils # (Auto) 0.00 K/uL (0-0.5) Basophils # (Auto) 0.02 K/uL (0-0.2) RDW Standard Deviation 39.6 fL (36.4-46.3) RDW Coefficient of Variation 12.0 % (11.5-14.5) Immature Granulocyte % (Auto) 0.2 % Immature Granulocyte # (Auto) 0.01 K/uL (0.00-0.02) Anion Gap 9.0 mmol/L (3-11) Est Creatinine Clear Calc Drug Dose 55.1 ml/min Estimated GFR () 71.1 Estimated GFR (Non- 61.3 BUN/Creatinine Ratio 15.0 (10-20) Calcium Level 9.1 mg/dl (8.5-10.1) Total Bilirubin 0.6 mg/dl (0.2-1) Aspartate Amino Transf (AST/SGOT) 19 U/L (15-37) Alanine Aminotransferase (ALT/SGPT) 19 U/L (12-78) Alkaline Phosphatase 87 U/L (45-117) Total Protein 7.4 gm/dl (6.4-8.2) Albumin 3.1 gm/dl (3.4-5.0) Globulin 4.3 gm/dl (2.5-4.0) Albumin/Globulin Ratio 0.7 (0.9-2) Bedside Lactic Acid Venous 1.42 mmol/L (0.90-1.70) Urine Color DK YELLOW Urine Appearance CLOUDY (CLEAR) Urine pH 5.5 (4.5-7.5) Urine Specific [place] 1.035 (1.000-1.030) Urine Protein 2+ (NEG) Urine Glucose (UA) 2+ (NEG) Urine Ketones 3+ (NEG) Urine Occult Blood 3+ (NEG) Urine Nitrite NEG (NEG) Urine Bilirubin NEG (NEG) Urine Urobilinogen NEG (NEG) Urine Leukocyte Esterase NEG (NEG) Urine WBC (Auto) 1-5 /hpf (0-5) Urine RBC (Auto) >30 /hpf (0-4) Urine Hyaline Casts (Auto) 10-30 /lpf (0-5) Urine Epithelial Cells (Auto) >30 /lpf (0-5) Urine Bacteria (Auto) NEG (NEG) Urine Renal Epithelial Cells 0-5 /lpf (0-5) Laboratory results as reviewed by me. Medications Administered Medications (Trade) Dose Ordered Sig/Denise Route Start Time Stop Time Status Last Admin Dose Admin Acetaminophen (Tylenol Tab) 1,000 mg STK-MED ONCE PO 09/09/17 20:38 09/09/17 20:39 DC 09/09/17 20:40 1,000 MG Levofloxacin (Levaquin / D5W) 750 mg NOW STAT IV 09/09/17 22:23 09/09/17 22:24 DC 09/09/17 22:38 750 MG ED Course 2120: The patient was evaluated in room C6. A complete history and physical exam was performed. 2037: Ordered Tylenol 1000 mg PO. 2040: Ordered Tylenol Tab 1000 mg PO. 2222: Ordered Levofloxacin 750 mg IV. 2233: I checked on the patient at this time and updated her on the findings of the case. She is agreeable to admission. 8: I discussed the case with Dr. Wilfredo Hurley Hospitalist. He will evaluate the patient for further treatment. Medical Decision This is a 72-year-old female presents with fever and confusion. Differential diagnoses include sepsis, pneumonia, UTI, cellulitis, SIRS, influenza. I did perform a limited focused review of portions of the patient's old chart on the electronic medical record. The patient has had no recent pertinent visits to this hospital. I did evaluate the patient as noted above. IV access was established. 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 I did personally review the patient's 12-lead EKG and chest x-ray as described above. She does have a left middle and lower lobe pneumonia. Blood cultures were ordered. I did review the patient's blood work as noted in the electronic medical record. Rapid flu testing was negative. The patient was given Tylenol for her fever. I did treat her with Levaquin for her pneumonia. I did discuss case with the hospitalist and case management specialist. I did discuss the test results with the patient. She is not confused at this time. Medication Reconcilliation Current Medication List: was personally reviewed by me Blood Pressure Screening Patient's blood pressure: Elevated blood pressure Consults Time Called: 2234 Consulting Physician: Dr. Wilfredo Hurley Hospitalist Returned Call: [phone] I discussed the case with Dr. Wilfredo Crews. He will evaluate the patient for further treatment. Impression Primary Impression: Multifocal pneumonia Scribe Attestation The scribe's documentation has been prepared under my direct and personally reviewed by me in its entirety. I confirm that the note above accurately reflects all work, treatment, procedures, and medical decision making performed by me. Departure Information Dispostion Being Evaluated By Hospitalist Referrals Fabian Jernigan D.O. (PCP) Patient Instructions My [facility]
[2017-09-10] MEDS: INSULIN ASPART 100 UNITS/ML 3 ML PEN SC SCH ×5 (03:46→20:45)
[2017-09-10 06:24] LABS: HEMATOCRIT 35.2 % (37-47); HEMOGLOBIN 12.3 g/dL (12.0-16.0); MEAN CORPUSCULAR HEMOGLOBIN 31.5 pg (25-34); MEAN CORPUSCULAR HGB CONC 34.9 g/dl (32-36); MEAN PLATELET VOLUME 9.5 fL (7.4-10.4); PLATELET COUNT 209 K/uL (130-400); RED CELL DISTRIBUTION WIDTH CV 12.1 % (11.5-14.5); RED CELL DISTRIBUTION WIDTH SD 39.4 fL (36.4-46.3); WHITE BLOOD COUNT 4.87 K/uL (4.8-10.8)
[2017-09-10 06:40] LABS: INR 2.6 (0.9-1.1)
[2017-09-10 06:53] LABS: CALCIUM 8.5 mg/dl (8.5-10.1); CREATININE 0.86 mg/dl (0.60-1.20); HEMOGLOBIN A1C 7.8 % (4.5-5.6); POTASSIUM 3.9 mmol/L (3.5-5.1)
[2017-09-10] MEDS ORDERED: KETOROLAC 0.5% OP SOLN PER DROP CHARGE OPR SCH (08:00)
[2017-09-10] MEDS ORDERED: INSULIN GLARGINE SOLOSTAR 100 UNITS/ML 3 ML PEN SC ONE (08:10)
[2017-09-10] MEDS: MULTIVITAMIN TAB PO SCH (08:40)
[2017-09-10] MEDS: CALCIUM 600MG + VIT D 400 IU TAB PO SCH (08:41)
[2017-09-10] MEDS: CEROVITE ADV FORMULA TAB PO SCH ×2 (08:41→20:33)
[2017-09-10] MEDS: METOPROLOL TARTRATE 25 MG TAB PO SCH ×2 (08:42→20:33)
--- NOTE | 2017-09-10 09:49 | Progress Note ---
Medicine Progress Note Date & Time of Visit: Sep 10, 2017 at 09:40 . Subjective CC: Follow-up visit for pneumonia. HPI: Febrile last night. Feels better today. Occasional nonproductive cough. Denies chest pain or SOB. ROS: General- as noted above in HPI Resp- as noted above in HPI Cardiac- no chest pain, no edema GI- no nausea, no vomiting, no diarrhea - no dysuria, no difficulty voiding . Objective Last 8 Hrs Date Time Temp Pulse Resp B/P (MAP) Pulse Ox O2 Delivery O2 Flow Rate FiO2 09/10/17 08:01 36.6 97 18 122/72 (89) 95 Room Air Physical Exam: General- lying in bed, no distress Neck- supple Lungs- rales left chest posteriorly; no significant wheezing; no respiratory distress Cardiovascular- RRR; tachy; no murmur; no gallop; no JVD; no pretibial edema Abdomen- + bowel sounds, soft, nontender Extremities- no cyanosis; no calf tenderness Neuro- alert, confused (oriented to person, place; year = 2019, day = Sat) Skin- warm & dry . Laboratory Results: Last 24 Hours Test 09/09/17 20:47 09/09/17 21:03 09/09/17 21:20 09/09/17 22:10 Influenza Type A Antigen Neg for Influ A Influenza Type B Antigen Neg for Influ B White Blood Count 5.05 K/uL Red Blood Count 4.06 M/uL Hemoglobin 12.8 g/dL Hematocrit 36.8 % Mean Corpuscular Volume 90.6 fL Mean Corpuscular Hemoglobin 31.5 pg Mean Corpuscular Hemoglobin Concent 34.8 g/dl Platelet Count 212 K/uL Mean Platelet Volume 9.6 fL Neutrophils (%) (Auto) 74.5 % Lymphocytes (%) (Auto) 16.0 % Monocytes (%) (Auto) 8.9 % Eosinophils (%) (Auto) 0.0 % Basophils (%) (Auto) 0.4 % Neutrophils # (Auto) 3.76 K/uL Lymphocytes # (Auto) 0.81 K/uL Monocytes # (Auto) 0.45 K/uL Eosinophils # (Auto) 0.00 K/uL Basophils # (Auto) 0.02 K/uL RDW Standard Deviation 39.6 fL RDW Coefficient of Variation 12.0 % Immature Granulocyte % (Auto) 0.2 % Immature Granulocyte # (Auto) 0.01 K/uL Sodium Level 131 mmol/L Potassium Level 4.6 mmol/L Chloride Level 97 mmol/L Carbon Dioxide Level 25 mmol/L Anion Gap 9.0 mmol/L Blood Urea Nitrogen 14 mg/dl Creatinine 0.92 mg/dl Est Creatinine Clear Calc Drug Dose 55.1 ml/min Estimated GFR () 71.1 Estimated GFR (Non- 61.3 BUN/Creatinine Ratio 15.0 Random Glucose 263 mg/dl Calcium Level 9.1 mg/dl Total Bilirubin 0.6 mg/dl Aspartate Amino Transf (AST/SGOT) 19 U/L Alanine Aminotransferase (ALT/SGPT) 19 U/L Alkaline Phosphatase 87 U/L Total Protein 7.4 gm/dl Albumin 3.1 gm/dl Globulin 4.3 gm/dl Albumin/Globulin Ratio 0.7 Bedside Lactic Acid Venous 1.42 mmol/L Urine Color DK YELLOW Urine Appearance CLOUDY Urine pH 5.5 Urine Specific [place] 1.035 Urine Protein 2+ Urine Glucose (UA) 2+ Urine Ketones 3+ Urine Occult Blood 3+ Urine Nitrite NEG Urine Bilirubin NEG Urine Urobilinogen NEG Urine Leukocyte Esterase NEG Urine WBC (Auto) 1-5 /hpf Urine RBC (Auto) >30 /hpf Urine Hyaline Casts (Auto) 10-30 /lpf Urine Epithelial Cells (Auto) >30 /lpf Urine Bacteria (Auto) NEG Urine Renal Epithelial Cells 0-5 /lpf Test 09/10/17 03:19 09/10/17 05:49 09/10/17 07:57 Bedside Glucose 239 mg/dl 244 mg/dl White Blood Count 4.87 K/uL Red Blood Count 3.91 M/uL Hemoglobin 12.3 g/dL Hematocrit 35.2 % Mean Corpuscular Volume 90.0 fL Mean Corpuscular Hemoglobin 31.5 pg Mean Corpuscular Hemoglobin Concent 34.9 g/dl RDW Standard Deviation 39.4 fL RDW Coefficient of Variation 12.1 % Platelet Count 209 K/uL Mean Platelet Volume 9.5 fL Prothrombin Time 26.7 SECONDS Prothromb Time International Ratio 2.6 Sodium Level 131 mmol/L Potassium Level 3.9 mmol/L Chloride Level 98 mmol/L Carbon Dioxide Level 25 mmol/L Anion Gap 8.0 mmol/L Blood Urea Nitrogen 13 mg/dl Creatinine 0.86 mg/dl Est Creatinine Clear Calc Drug Dose 58.7 ml/min Estimated GFR () 77.1 Estimated GFR (Non- 66.6 BUN/Creatinine Ratio 14.9 Random Glucose 213 mg/dl Estimated Average Glucose 177 mg/dl Hemoglobin A1c 7.8 % Calcium Level 8.5 mg/dl Magnesium Level 1.9 mg/dl Date/Time Source Procedure Growth Status 09/09/17 21:13 Blood Blood Culture Pending Received 09/09/17 21:03 Blood Blood Culture Pending Received 09/09/17 22:10 Urine,Catheterized Urine Culture Pending Received Assessment & Plan SEPSIS Met criteria for sepsis per 2001 definition and current CMS guidelines (fever, tachycardia, tachypnea). Source = pneumonia as discussed below. Systolic blood pressures > 90. Serum lactate 1.42. Blood cultures obtained. Received broad-spectrum antibiotic coverage with levofloxacin. Further management of pneumonia as discussed below. PNEUMONIA Presented to ED with fever and cough. 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 Chest x-ray demonstrated infiltrates left mid and lower lung. Blood cultures obtained. No sputum for gram stain / C&S. Received IV levofloxacin. Will discontinue because of confusion. History of severe allergic reactions to penicillins and cephalosporins. Change antibiotic therapy to doxycycline. CONFUSION Probable encephalopathy / delirium secondary to pneumonia. Follow. HISTORY PAROXYSMAL ATRIAL FIBRILLATION Recent onset PAF. Heart rhythm regular. Continue metoprolol, warfarin. DM TYPE 2 Fairly well-controlled at home. Hgb A1C 7.8. FBS this morning = 244. Hold metformin during hospital stay. Lantus / Novolog per protocol. VTE PROPHYLAXIS Continue warfarin. Ambulate. DISPOSITION Expected discharge to home. Has clinic appointment with Dr. Mayo 2/3. Subsequent Family Medicine follow-up with Dr. Fabian Jernigan. . Current Inpatient Medications: Current Inpatient Medications Medications (Trade) Dose Ordered Sig/Denise Route Start Time Stop Time Status Last Admin Dose Admin Ondansetron HCl (Zofran Inj) 4 mg Q6H PRN IV 09/09/17 23:15 10/09/17 23:14 Aspirin (Ecotrin Tab) 81 mg HS PO 09/10/17 21:00 10/10/17 20:59 Metoprolol Tartrate (Lopressor Tab) 25 mg BID PO 09/10/17 08:00 10/10/17 08:59 09/10/17 08:42 25 MG Multivitamins (Multivitamin Tab) 1 tab QAM PO 09/10/17 08:00 10/10/17 08:59 09/10/17 08:40 1 TAB Prednisolone Acetate (Pred Forte 1% Oph Susp) 1 drops DAILY OPR 09/10/17 08:00 10/10/17 08:59 Simvastatin (Zocor Tab) 20 mg QPM PO 09/10/17 21:00 10/10/17 20:59 Warfarin Sodium (Coumadin Tab) 5 mg DAILY@16 PO 09/10/17 16:00 10/10/17 15:59 Calcium/Vitamin D (Caltrate Plus Tab) 1 tab QAM PO 09/10/17 08:00 10/10/17 08:59 09/10/17 08:41 1 TAB Multivitamins/ Minerals (Multivitamin W/ Minerals Tab) 1 tab BID PO 09/10/17 08:00 10/10/17 08:59 09/10/17 08:41 1 TAB Insulin Aspart (novoLOG ASPART) SLIDING SCALE G... ACHS SC 09/10/17 03:00 10/10/17 02:59 09/10/17 08:50 6 UNITS Glucose (Glucose 40% Gel) 15-30 GRAMS 15 GRAMS... UD PRN PO 09/09/17 23:15 10/09/17 23:14 Glucose (Glucose Chew Tab) 4-8 Tablets 4 Tabl... UD PRN PO 09/09/17 23:15 10/09/17 23:14 Dextrose (Dextrose 50% 50ML Syringe) 25-50ML OF 50% DW IV FOR... UD PRN IV 09/09/17 23:15 10/09/17 23:14 Glucagon (Glucagon Inj) 1 mg UD PRN SQ 09/09/17 23:15 10/09/17 23:14 Ketorolac Tromethamine (Acular 0.5 Oph Soln) 1 drops QID OPR 09/10/17 08:00 10/10/17 07:59 Insulin Glargine (Lantus Solostar Pen) BSG LANTUS SQ < ... BID SC 09/10/17 20:00 10/10/17 19:59 Levofloxacin 750 mg/Prmx 150 ml @ 100 mls/hr DAILY@2200 IV 09/10/17 22:00 09/17/17 21:59
[2017-09-10] MEDS: PrednisoLONE ACET 1% OP SUSP 5 ML BTL OPR SCH (10:07)
[2017-09-10] MEDS: KETOROLAC 0.5% OP SOLN 3 ML BTL OPR SCH ×4 (10:07→20:33)
[2017-09-10] MEDS: DOXYCYCLINE IV 100 MG in DEXTROSE 5% 100ML 100 ML IV SCH ×2 (11:22→21:56)
[2017-09-10 11:28] LABS: INFLUENZA A PCR Neg for Influ A (NEG); INFLUENZA B PCR Neg for Influ B (NEG)
[2017-09-10] MEDS: WARFARIN SOD 5 MG TAB PO SCH ×2 (16:29→16:53)
[2017-09-10] MEDS: INSULIN GLARGINE SOLOSTAR 100 UNITS/ML 3 ML PEN SC SCH (20:43)
[2017-09-10] MEDS: ASPIRIN 81 MG ECTAB PO SCH (20:46)
[2017-09-10] MEDS: SIMVASTATIN 20 MG TAB PO SCH (20:46)
[2017-09-10] MEDS ORDERED: ACETAMINOPHEN 500 MG TAB PO PRN (21:00)
[2017-09-10] MEDS ORDERED: ACETAMINOPHEN 500 MG TAB PO ONE (21:00)
[2017-09-10] MEDS ORDERED: LEVOFLOXACIN / D5W 750 MG in PREMIXED IN D5W 150 ML IV SCH (22:00)
[2017-09-11 07:13] LABS: INR 1.8 (0.9-1.1)
[2017-09-11 07:40] LABS: CALCIUM 8.5 mg/dl (8.5-10.1); CREATININE 0.88 mg/dl (0.60-1.20); POTASSIUM 3.5 mmol/L (3.5-5.1)
[2017-09-11 08:13] VITALS: BP 130/69; PULSE 78; TEMP 37.3; O2SAT 96
[2017-09-11] MEDS: CALCIUM 600MG + VIT D 400 IU TAB PO SCH (08:28)
[2017-09-11] MEDS: MULTIVITAMIN TAB PO SCH (08:29)
[2017-09-11] MEDS: CEROVITE ADV FORMULA TAB PO SCH ×2 (08:29→20:03)
[2017-09-11] MEDS: PrednisoLONE ACET 1% OP SUSP 5 ML BTL OPR SCH (08:39)
[2017-09-11] MEDS: KETOROLAC 0.5% OP SOLN 3 ML BTL OPR SCH (08:39)
[2017-09-11] MEDS: INSULIN GLARGINE SOLOSTAR 100 UNITS/ML 3 ML PEN SC SCH ×3 (08:39→20:14)
[2017-09-11] MEDS: INSULIN ASPART 100 UNITS/ML 3 ML PEN SC SCH ×4 (08:39→20:14)
[2017-09-11] MEDS ORDERED: SODIUM CHLORIDE 0.9% 1000ML 1,000 ML IV SCH (08:45)
[2017-09-11] MEDS: METOPROLOL TARTRATE 25 MG TAB PO SCH ×2 (09:18→20:03)
--- NOTE | 2017-09-11 10:13 | Progress Note ---
Medicine Progress Note Date & Time of Visit: Sep 11, 2017 at 09:25 . Subjective CC: Follow-up visit for pneumonia. HPI: Feeling better. Febrile again last night, but temp not as high. Occasional cough productive of clear sputum. Denies chest pain or SOB. Confusion improved. ROS: General- as noted above in HPI Resp- as noted above in HPI Cardiac- no chest pain, no edema GI- no BM for a few days; no nausea, no vomiting, no diarrhea - no dysuria, no difficulty voiding . 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 Laboratory Results: Last 24 Hours Test 09/10/17 11:42 09/10/17 16:26 09/10/17 20:19 09/11/17 06:34 Bedside Glucose 260 mg/dl 235 mg/dl 246 mg/dl Prothrombin Time 18.8 SECONDS Prothromb Time International Ratio 1.8 Sodium Level 130 mmol/L Potassium Level 3.5 mmol/L Chloride Level 97 mmol/L Carbon Dioxide Level 25 mmol/L Anion Gap 8.0 mmol/L Blood Urea Nitrogen 21 mg/dl Creatinine 0.88 mg/dl Est Creatinine Clear Calc Drug Dose 57.3 ml/min Estimated GFR () 75.0 Estimated GFR (Non- 64.7 BUN/Creatinine Ratio 23.6 Random Glucose 198 mg/dl Calcium Level 8.5 mg/dl Test 09/11/17 08:15 Bedside Glucose 203 mg/dl Assessment & Plan SEPSIS Met criteria for sepsis per 2001 definition and current CMS guidelines (fever, tachycardia, tachypnea). Source = pneumonia as discussed below. Systolic blood pressures > 90. Serum lactate 1.42. Blood cultures obtained. Received broad-spectrum antibiotic coverage with levofloxacin. Further management of pneumonia as discussed below. PNEUMONIA Presented to ED with fever and cough. 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 Chest x-ray demonstrated infiltrates left mid and lower lung. Blood cultures obtained- negative so far. No sputum produced for gram stain / C&S. Received IV levofloxacin in ED; it was not continued because of confusion. History of severe allergic reactions to penicillins and cephalosporins. Changed antibiotic therapy to IV doxycycline. Improving. Transition to PO doxy. CONFUSION Probable encephalopathy / delirium secondary to pneumonia. Improved. Follow. HISTORY PAROXYSMAL ATRIAL FIBRILLATION Recent onset PAF. Heart rhythm regular. Continue metoprolol, warfarin. HYPONATREMIA / DEHYDRATION IV NSS. Follow. DM TYPE 2 Fairly well-controlled at home on metformin. Hgb A1C 7.8. FBS this morning = 203. Hold metformin during hospital stay. Lantus / Novolog per protocol. Initially declined Lantus, but agreed to take it after further discussion. VTE PROPHYLAXIS Continue warfarin. Ambulate. DISPOSITION Expected discharge to home. Has clinic appointment with Dr. Mayo 2/3. Subsequent Family Medicine follow-up with Dr. Fabian Jernigan. . Current Inpatient Medications: Current Inpatient Medications Medications (Trade) Dose Ordered Sig/Denise Route Start Time Stop Time Status Last Admin Dose Admin Ondansetron HCl (Zofran Inj) 4 mg Q6H PRN IV 09/09/17 23:15 10/09/17 23:14 Aspirin (Ecotrin Tab) 81 mg HS PO 09/10/17 21:00 10/10/17 20:59 09/10/17 20:46 81 MG Metoprolol Tartrate (Lopressor Tab) 25 mg BID PO 09/10/17 08:00 10/10/17 08:59 09/11/17 09:18 25 MG Multivitamins (Multivitamin Tab) 1 tab QAM PO 09/10/17 08:00 10/10/17 08:59 09/11/17 08:29 1 TAB Prednisolone Acetate (Pred Forte 1% Oph Susp) 1 drops DAILY OPR 09/10/17 08:00 10/10/17 08:59 09/10/17 10:07 1 DROPS Simvastatin (Zocor Tab) 20 mg QPM PO 09/10/17 21:00 10/10/17 20:59 09/10/17 20:46 20 MG Warfarin Sodium (Coumadin Tab) 5 mg DAILY@16 PO 09/10/17 16:00 10/10/17 15:59 09/10/17 16:53 5 MG Calcium/Vitamin D (Caltrate Plus Tab) 1 tab QAM PO 09/10/17 08:00 10/10/17 08:59 09/11/17 08:28 1 TAB Multivitamins/ Minerals (Multivitamin W/ Minerals Tab) 1 tab BID PO 09/10/17 08:00 10/10/17 08:59 09/11/17 08:29 1 TAB Insulin Aspart (novoLOG ASPART) SLIDING SCALE G... ACHS SC 09/10/17 03:00 10/10/17 02:59 09/11/17 08:39 5 UNITS Glucose (Glucose 40% Gel) 15-30 GRAMS 15 GRAMS... UD PRN PO 09/09/17 23:15 10/09/17 23:14 Glucose (Glucose Chew Tab) 4-8 Tablets 4 Tabl... UD PRN PO 09/09/17 23:15 10/09/17 23:14 Dextrose (Dextrose 50% 50ML Syringe) 25-50ML OF 50% DW IV FOR... UD PRN IV 09/09/17 23:15 10/09/17 23:14 Glucagon (Glucagon Inj) 1 mg UD PRN SQ 09/09/17 23:15 10/09/17 23:14 Ketorolac Tromethamine (Acular 0.5 Oph Soln) 1 drops QID OPR 09/10/17 08:00 10/10/17 07:59 09/10/17 20:33 1 DROPS Insulin Glargine (Lantus Solostar Pen) BSG LANTUS SQ < ... BID SC 09/10/17 20:00 10/10/17 19:59 09/10/17 20:43 10 UNITS Doxycycline Hyclate 100 mg/ Dextrose 110 ml @ 50 mls/hr Q12H IV 09/10/17 10:00 09/17/17 09:59 09/10/17 21:56 50 MLS/HR Acetaminophen (Tylenol Tab) 1,000 mg Q8H PRN PO 09/10/17 21:00 10/10/17 20:59 Sodium Chloride 1,000 ml @ 100 mls/hr Q10H IV 09/11/17 08:45 09/11/17 18:44 09/11/17 09:19 100 MLS/HR
[2017-09-11] MEDS: DOXYCYCLINE IV 100 MG in DEXTROSE 5% 100ML 100 ML IV SCH (10:23)
[2017-09-11 13:36] VITALS: O2SAT 95
[2017-09-11 14:37] VITALS: O2SAT 96
[2017-09-11 14:41] VITALS: BP 108/68; PULSE 88; TEMP 36.4; O2SAT 96
[2017-09-11] MEDS ORDERED: WARFARIN SOD 7.5 MG TAB PO ONE (16:00)
[2017-09-11 20:01] VITALS: BP 137/77; PULSE 79; O2SAT 93
[2017-09-11] MEDS: ASPIRIN 81 MG ECTAB PO SCH (20:04)
[2017-09-11] MEDS: SIMVASTATIN 20 MG TAB PO SCH (20:05)
[2017-09-11 22:34] VITALS: BP 123/68; PULSE 77; TEMP 36.8; O2SAT 94
[2017-09-12 06:30] LABS: CALCIUM 8.5 mg/dl (8.5-10.1); CREATININE 0.78 mg/dl (0.60-1.20); POTASSIUM 3.6 mmol/L (3.5-5.1)
[2017-09-12 06:39] LABS: INR 2.1 (0.9-1.1)
[2017-09-12] MEDS ORDERED: DOXYCYCLINE HYCLATE 100 MG CAP PO SCH (08:00)
[2017-09-12 08:07] VITALS: BP 113/71; PULSE 75; TEMP 36.9; O2SAT 90
[2017-09-12] MEDS: CALCIUM 600MG + VIT D 400 IU TAB PO SCH (08:36)
[2017-09-12] MEDS: CEROVITE ADV FORMULA TAB PO SCH (08:37)
[2017-09-12] MEDS: METOPROLOL TARTRATE 25 MG TAB PO SCH (08:37)
[2017-09-12] MEDS: MULTIVITAMIN TAB PO SCH (08:38)
[2017-09-12] MEDS: INSULIN ASPART 100 UNITS/ML 3 ML PEN SC SCH ×2 (08:42→12:32)
[2017-09-12] MEDS: INSULIN GLARGINE SOLOSTAR 100 UNITS/ML 3 ML PEN SC SCH (08:44)
[2017-09-12 09:00] VITALS: BP 109/65; PULSE 82; TEMP 37; O2SAT 93
[2017-09-12 09:17] VITALS: O2SAT 93
[2017-09-12] MEDS ORDERED: LPT20 PO (11:55)
[2017-09-12] MEDS ORDERED: CMD5 PO (11:55)
[2017-09-12] MEDS ORDERED: DOXY-300 PO (11:56)
--- NOTE | 2017-09-12 13:02 | Progress Note ---
Medicine Progress Note Date & Time of Visit: Sep 12, 2017 at 13:01 . Subjective Doing well. Cough essentially resolved. No fever since evening of 09/10. No nausea, vomiting, diarrhea. Ambulating. . Objective Last 8 Hrs Date Time Temp Pulse Resp B/P (MAP) Pulse Ox O2 Delivery O2 Flow Rate FiO2 09/12/17 09:30 Room Air 09/12/17 09:17 93 Room Air 09/12/17 09:00 37.0 82 16 109/65 (80) 93 Room Air 09/12/17 08:07 36.9 75 18 113/71 (85) 90 Physical Exam: General- sitting in chair, no distress Neck- supple Lungs- rales left chest posteriorly; no respiratory distress Cardiovascular- RRR; II/ systolic murmur at base; no gallop; no JVD; no pretibial edema Abdomen- + bowel sounds, soft, nontender Extremities- no cyanosis; no calf tenderness Neuro- alert, oriented x 3 Skin- warm & dry . Laboratory Results: Last 24 Hours Test 09/11/17 16:31 09/11/17 19:36 09/12/17 05:42 09/12/17 07:58 Bedside Glucose 189 mg/dl 189 mg/dl 150 mg/dl Prothrombin Time 22.2 SECONDS Prothromb Time International Ratio 2.1 Sodium Level 134 mmol/L Potassium Level 3.6 mmol/L Chloride Level 102 mmol/L Carbon Dioxide Level 27 mmol/L Anion Gap 5.0 mmol/L Blood Urea Nitrogen 16 mg/dl Creatinine 0.78 mg/dl Est Creatinine Clear Calc Drug Dose 64.7 ml/min Estimated GFR () 86.8 Estimated GFR (Non- 74.9 BUN/Creatinine Ratio 20.0 Random Glucose 155 mg/dl Calcium Level 8.5 mg/dl Test 09/12/17 11:49 Bedside Glucose 283 mg/dl Assessment & Plan PNEUMONIA Presented to ED with fever and cough. 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 Chest x-ray demonstrated infiltrates left mid and lower lung. Blood cultures obtained- negative so far. No sputum produced for gram stain / C&S. Received IV levofloxacin in ED; it was not continued because of confusion. History of severe allergic reactions to penicillins and cephalosporins. Changed antibiotic therapy to IV doxycycline. Improving. Transitioned to PO doxy. Discharge on doxy to complete 7 day course of therapy. Recheck chest x-ray in 4-6 weeks to assure resolution. SEPSIS Met criteria for sepsis per 2001 definition and current CMS guidelines (fever, tachycardia, tachypnea). Source = pneumonia as discussed below. Systolic blood pressures > 90. Serum lactate 1.42. Blood cultures obtained. Initially received broad-spectrum antibiotic coverage with levofloxacin. Further management of pneumonia as discussed above. CONFUSION Probable encephalopathy / delirium secondary to pneumonia. Resolved. HISTORY PAROXYSMAL ATRIAL FIBRILLATION NSR. Continue metoprolol, warfarin. HYPONATREMIA / DEHYDRATION Sodium at time of admission was 131. IV NSS. Repeat Na 134. DM TYPE 2 Fairly well-controlled at home on metformin. Hgb A1C 7.8. Holding metformin during hospital stay. Lantus / Novolog per protocol. FBS this morning = 150. VTE PROPHYLAXIS Continue warfarin. Ambulate. DISPOSITION Discharge to home. Has clinic appointment with Dr. Carrero on 09/14. Subsequent Family Medicine follow-up with Dr. Fabian Jernigan. . Current Inpatient Medications: Current Inpatient Medications Medications (Trade) Dose Ordered Sig/Denise Route Start Time Stop Time Status Last Admin Dose Admin Ondansetron HCl (Zofran Inj) 4 mg Q6H PRN IV 09/09/17 23:15 10/09/17 23:14 Aspirin (Ecotrin Tab) 81 mg HS PO 09/10/17 21:00 10/10/17 20:59 09/11/17 20:04 81 MG Metoprolol Tartrate (Lopressor Tab) 25 mg BID PO 09/10/17 08:00 10/10/17 08:59 09/12/17 08:37 25 MG Multivitamins (Multivitamin Tab) 1 tab QAM PO 09/10/17 08:00 10/10/17 08:59 09/12/17 08:38 1 TAB Simvastatin (Zocor Tab) 20 mg QPM PO 09/10/17 21:00 10/10/17 20:59 09/11/17 20:05 20 MG Warfarin Sodium (Coumadin Tab) 5 mg DAILY@16 PO 09/10/17 16:00 10/10/17 15:59 Future hold 09/10/17 16:53 5 MG Calcium/Vitamin D (Caltrate Plus Tab) 1 tab QAM PO 09/10/17 08:00 10/10/17 08:59 09/12/17 08:36 1 TAB Multivitamins/ Minerals (Multivitamin W/ Minerals Tab) 1 tab BID PO 09/10/17 08:00 10/10/17 08:59 09/12/17 08:37 1 TAB Insulin Aspart (novoLOG ASPART) SLIDING SCALE G... ACHS SC 09/10/17 03:00 10/10/17 02:59 09/12/17 12:32 11 UNITS Glucose (Glucose 40% Gel) 15-30 GRAMS 15 GRAMS... UD PRN PO 09/09/17 23:15 10/09/17 23:14 Glucose (Glucose Chew Tab) 4-8 Tablets 4 Tabl... UD PRN PO 09/09/17 23:15 10/09/17 23:14 Dextrose (Dextrose 50% 50ML Syringe) 25-50ML OF 50% DW IV FOR... UD PRN IV 09/09/17 23:15 10/09/17 23:14 Glucagon (Glucagon Inj) 1 mg UD PRN SQ 09/09/17 23:15 10/09/17 23:14 Insulin Glargine (Lantus Solostar Pen) BSG LANTUS SQ < ... BID SC 09/10/17 20:00 10/10/17 19:59 09/12/17 08:44 8 UNITS Acetaminophen (Tylenol Tab) 1,000 mg Q8H PRN PO 09/10/17 21:00 10/10/17 20:59 Doxycycline Hyclate (Vibramycin Cap) 100 mg BID PO 09/12/17 08:00 09/19/17 07:59 09/12/17 09:37 100 MG
--- NOTE | 2017-09-12 13:04 | Discharge Instructions ---
Discharge Instructions Date of Service Sep 12, 2017. Admission Reason for Admission: pneumonia . Discharge Discharge Diagnosis / Problem: pneumonia Discharge Goals Goal(s): Improve disease control Activity Recommendations Activity Limitations: resume your previous activity . Instructions / Follow-Up Instructions / Follow-Up APPOINTMENTS: FAMILY MEDICINE 09/14/2017 1:00 PM [facility] Chente Carrero DO (covering for Dr. Fabian Jernigan) FAMILY MEDICINE 10/15/2017 1:20 PM Fabian Jernigan DO OTHER INSTRUCTIONS: Take doxycycline 100 mg twice a day until gone to treat pneumonia. Prescription was sent to your pharmacy. Avoid excessive sun exposure while taking doxycycline. Please ask Dr. Jernigan to check a repeat chest x-ray when you see him on . Seek medical attention if you have: * temperature above 101 * chest pain, cough, or trouble breathing * abdominal pain, nausea, vomiting * diarrhea, dark stools or bloody stools * any unanswered questions or concerns Call 911 if symptoms are severe. Call if you have any questions or problems. My cell # is [phone]. You can also reach a [facility] hospitalist on duty at [facility] 24 hours a day by calling [phone]. Please take good care of yourself. Sky Thomas . Current Hospital Diet Patient's current hospital diet: AHA Diet (Heart Healthy), Diabetes Type 2 Diet Discharge Diet Recommended Diet: AHA Diet (Heart Healthy) Pending Studies Studies pending at discharge: no Laboratory Results Hemoglobin A1c Test 09/10/17 05:49 Range/Units Estimated Average Glucose 177 mg/dl Hemoglobin A1c 7.8 H 4.5-5.6 % Medical Emergencies . Who to Call and When: Medical Emergencies: If at any time you feel your situation is an emergency, please call 911 immediately. . Non-Emergent Contact Non-Emergency issues call your: Primary Care Provider, Sales Technician Home Theater, Hospital Doctor . . "Provider Documentation" section prepared by Sky Thomas. . VTE Core Measure Inpt VTE Proph given/why not?: Warfarin (Coumadin)
[2017-09-12 13:05] VITALS: BP 109/65; PULSE 82; TEMP 37; O2SAT 93
--- NOTE | 2017-09-13 07:55 | Discharge Summary ---
Discharge Summary Date of Service Sep 13, 2017. Discharge Summary Admission Date: Sep 09, 2017 at 23:06 Discharge Date: Sep 12, 2017 Discharge Disposition: Home Principal Diagnosis: community acquired pneumonia OTHER ACUTE DIAGNOSES: encephalopathy hyponatremia . Secondary Diagnoses/Problems: Chronic and Resolved Medical Problems: (1) Anticoagulated on warfarin Status: Chronic (2) Diabetes mellitus, type 2 Status: Chronic (3) Dyslipidemia Status: Chronic (4) Paroxysmal atrial fibrillation Status: Chronic (5) Secundum ASD Permanent Comment: noted on 04/2013 echo Status: Chronic Surgical Problems: (1) History of cataract surgery Status: Chronic (2) S/P section Status: Chronic (3) S/p nipple surgery Status: Chronic . Procedures: IV meds . Pending Studies/Follow-Up: Please check f/u BMP in clinic. Please check f/u chest x-ray in clinic in 4-6 weeks Re: pneumonia. . Medication Reconciliation New Medications: Doxycycline (Monohydrate) (Doxycycline) 100 Mg Cap 100 MG PO BID, #8 CAP Continued Medications: Aspirin (Aspirin Ec) 81 Mg Tab 81 MG PO HS Atorvastatin (Lipitor) 20 Mg Tab 20 MG PO DAILY, TAB Calcium Carbonate-Vitamin D (Calcium + D) 1 Tab Tab 1 TAB PO QAM Metformin Hcl (Glucophage) 500 Mg Tab 500 MG PO BID, TAB Metoprolol Tartrate (Lopressor) 25 Mg Tab 25 MG PO BID for 30 Days, #60 TAB Multiple Vitamins W/ Minerals (Preservision Areds 2) 1 Cap Cap 1 TAB PO BID Multivitamin (Multivitamin) Tab 1 TAB PO QAM Warfarin Sod (Coumadin) 5 Mg Tab 0 PO DAILY Dose as of 08/14/17: 10 mg Sat-Sat-Sat 5 mg [id number] Admission Information HPI (per Admitting provider): She is a 72-year-old female with significant past medical history including paroxysmal atrial fibrillation, on Coumadin, type 2 diabetes, hyperlipidemia, atrial septal defect, apparently has been complaining of flu-like symptoms with fever, chills, sore throat, body aches for the last 1 week. She has had sweats last night and her symptoms got worse as of this evening. Her found her to be very confused this evening and brought her to the Emergency Room. No chest pain, no palpitation, did not have any shortness of breath, did have nausea but no vomiting, no abdominal pain, no problem with urine and/or bowel habit, no numbness or tingling in the extremities, no headache or blurred vision. In the ER, she was febrile at 39.4, tachycardic, with normal white count, but chest x-ray did show left mid and lower lobe infiltration. From that point, she received IV antibiotic and was advised admission. . Physical Exam (per Admitting): GENERAL: On examination in the Emergency Room, she was not having any acute distress. VITAL SIGNS: Temperature 39.4, pulse was 104 initially, then went down to 89, blood pressure 124/59, saturation 92% on room air. HEENT: Unremarkable. NECK: Supple. No JVD, no bruit. CHEST: Decreased breath sounds on the left side with crackles in mid and lower lung. HEART: S1, S2, regular. ABDOMEN: Soft, benign, nontender. No organomegaly. Bowel sounds present. EXTREMITIES: Negative for any edema. MUSCULOSKELETAL: No acute arthritis. CENTRAL NERVOUS SYSTEM: She is alert, awake, oriented x3. No focal sensory and/or motor deficit appreciated. Her confusion resolved in the Emergency Room. . Hospital Course PNEUMONIA Presented to ED with fever and cough. 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 Chest x-ray demonstrated infiltrates left mid and lower lung. Blood cultures obtained- negative so far. No sputum produced for gram stain / C&S. Received IV levofloxacin in ED; it was not continued because of confusion. History of severe allergic reactions to penicillins and cephalosporins. Changed antibiotic therapy to IV doxycycline. Improving. Transitioned to PO doxy. Discharge on doxy to complete 7 day course of therapy. Recheck chest x-ray in 4-6 weeks to assure resolution. SEPSIS Met criteria for sepsis per 2001 definition and current CMS guidelines (fever, tachycardia, tachypnea). Source = pneumonia as discussed below. Systolic blood pressures > 90. Serum lactate 1.42. Blood cultures obtained. Initially received broad-spectrum antibiotic coverage with levofloxacin. Further management of pneumonia as discussed above. CONFUSION Probable encephalopathy / delirium secondary to pneumonia. Resolved. HISTORY PAROXYSMAL ATRIAL FIBRILLATION NSR. Continue metoprolol, warfarin. HYPONATREMIA / DEHYDRATION Sodium at time of admission was 131. IV NSS. Repeat Na 134. DM TYPE 2 Fairly well-controlled at home on metformin. Hgb A1C 7.8. Holding metformin during hospital stay. Lantus / Novolog per protocol. FBS this morning = 150. VTE PROPHYLAXIS Continue warfarin. Ambulate. DISPOSITION Discharge to home. Has clinic appointment with Dr. Carrero on 09/14. Subsequent Family Medicine follow-up with Dr. Fabian Jernigan. . Total time spent on discharge = 40 min. This includes examination of the patient, discharge planning, medication reconciliation, and communication with other providers. . Discharge Instructions Date of Service Sep 12, 2017. Admission Reason for Admission: pneumonia . Discharge Discharge Diagnosis / Problem: pneumonia Discharge Goals Goal(s): Improve disease control Activity Recommendations Activity Limitations: resume your previous activity . Instructions / Follow-Up Instructions / Follow-Up APPOINTMENTS: [facility] (cover[facility] for Dr. Fabian Jernigan) FAMILY MEDICINE 10/15/2017 1:20 PM Fabian Jernigan DO OTHER INSTRUCTIONS: Take doxycycline 100 mg twice a day until gone to treat pneumonia. Prescription was sent to your pharmacy. Avoid excessive sun exposure while taking doxycycline. Please ask Dr. Jernigan to check a repeat chest x-ray when you see him on . Seek medical attention if you have: * temperature above 101 * chest pain, cough, or trouble breathing * abdominal pain, nausea, vomiting * diarrhea, dark stools or bloody stools * any unanswered questions or concerns Call 911 if symptoms are severe. Call if you have any questions or problems. My cell # is [phone]. You can also reach a [facility] hospitalist on duty at [facility] 24 hours a day by calling [phone]. Please take good care of yourself. Sky Thomas . Current Hospital Diet Patient's current hospital diet: AHA Diet (Heart Healthy), Diabetes Type 2 Diet Discharge Diet Recommended Diet: AHA Diet (Heart Healthy) Pending Studies Studies pending at discharge: no Laboratory Results Hemoglobin A1c Test 09/10/17 05:49 Range/Units Estimated Average Glucose 177 mg/dl Hemoglobin A1c 7.8 H 4.5-5.6 % Medical Emergencies . Who to Call and When: Medical Emergencies: If at any time you feel your situation is an emergency, please call 911 immediately. . Non-Emergent Contact Non-Emergency issues call your: Primary Care Provider, Rheumatology Specialist, Hospital Doctor . . "Provider Documentation" section prepared by Sky Thomas. . VTE Core Measure Inpt VTE Proph given/why not?: Warfarin (Coumadin) .
== END 2017-09-12 14:42 | disposition home or self-care (01) | DRG 871 ==
LOC: C.EDB 19:28 → C.4E 23:06 → ENRESERV 23:33
PROVIDERS: ADMIT Internal Medicine; ATTEND Hospitalist
DX: A41.9 Sepsis, unspecified organism (principal); J18.1 Lobar pneumonia, unspecified organism; G93.40 Encephalopathy, unspecified; E87.1 Hypo-osmolality and hyponatremia; Q21.1 Atrial septal defect; E11.9 Type 2 diabetes mellitus without complications; I48.0 Paroxysmal atrial fibrillation; E78.5 Hyperlipidemia, unspecified; Z79.01 Long term (current) use of anticoagulants; Z79.82 Long term (current) use of aspirin; Z79.84 Long term (current) use of oral hypoglycemic drugs; Z79.899 Other long term (current) drug therapy; Z88.0 Allergy status to penicillin; Z88.1 Allergy status to other antibiotic agents; Z82.49 Family history of ischemic heart disease and other diseases of the circulatory system; Z83.3 Family history of diabetes mellitus; Z80.8 Family history of malignant neoplasm of other organs or systems